=== PATIENT | female | born 1955 | race Caucasian/White ===

== ENCOUNTER 2022-07-10 15:30 | Inpatient (IN) ==
--- NOTE | 2022-07-10 16:25 | Emergency Department Note ---
Impression & Plan Generalized anxiety disorder with panic attacks ED Provider Note NAME: RICKI MOSHER AGE: 66 SEX: F : 1955 ARRIVES VIA: Walk-In INFORMANT: Patient, ED PROVIDER(S): Dany Saeed MD Chief Complaint: Anxiety HPI: Patient presents due to concern for significant anxiety that seem to present on . Patient states that it is been persistent. Patient was seen at [facility] and had a recent increase in her Zoloft from 100 mg to 150 mg completed 1 week ago. Patient states that he is compliant with medications. Patient denies any chest pains or shortness of breath. The patient does have some associated anxiety poor sleep. The patient does not any access to guns or weapons. There are guns but they are locked up and the patient does not have access to them. The patient denies any prior history of self-harm. The patient did have an admission a month and a half ago and states that she did feel as though she benefited from admission at that time. The patient has thought about taking too much of her medications. Patient denies any HI or AVH. Patient is retired. ROS: See HPI for pertinent positives and negatives. A total of 10 systems were reviewed and otherwise negative. Past medical history: See below Surgical history: See below Social history: See below Physical Exam: GENERAL: NAD, anxious, non-toxic. EYE EXAM: Normal conjunctiva. PERRL, no anisocoria and EOM's grossly intact w/o pain. NECK: Supple, no nuchal rigidity, no adenopathy, non-tender. No signs of meningismus. FROM of the neck with good chin to chest and neck extension. No stridor. LUNGS: Clear to auscultation. Normal chest wall mechanics. HEART: NSR, no MRG. ABDOMEN: Abdomen soft, non-tender, normo-active bowel sounds, no masses, no rebound or guarding. BACK: No CVA TTP. SKIN: No rashes and no bruising. UPPER EXTREMITIES: Upper extremities are grossly normal. LOWER EXTREMITIES: Grossly normal, no edema. NEURO EXAM: A&O x3, cranial nerves II-XII grossly intact, normal speech, moves all 4 extremities. Psych: Anxious in appearance, +SI w/ plan, denies HI or AVH Differential diagnoses: Mood disorder, infection, hypoglycemia, electrolyte abnormalities, cardiac sources, intracerebral event, toxicologic, trauma, neurologic, as well as other pathologies. Course: Patient was seen and evaluated the bedside. Full history physical exam was performed. MDM: Patient was seen due to concern for anxiety. Blood work was obtained and the patient was ordered p.o. Ativan. Patient was the medically cleared seen and evaluated by psych family independence case manager. Referrals made. Bed search was suspended. The patient's home Suboxone was ordered. Patient signed out to overnight physician Dr. Celis. Past Med/Surg History Medical History Fibromyalgia Osteoarthritis Surgical History History of total bilateral knee replacement Social History Smoking Status: Never smoker Preferred Language: Danish Communication Ability: Effective Nutrition Program Instructor Required: No Beliefs That Will Affect Care: None marital status: Current Living Situation: Spouse current occupational status: unemployed Feels Safe at Home: Yes Assistive Devices: Glasses Allergies Allergies Allergy/AdvReac Type Severity Reaction Status Date / Time No Known Allergies Allergy Unknown Verified 10/17/06 15:21 morphine AdvReac Unknown N&V;DROP Verified 09/10/09 03:46 IN BP Home Meds Home Medications Medication Instructions Recorded Confirmed amlodipine 10 mg tablet 10 mg PO QAM ##0 09/25/06 07/11/22 omeprazole 20 mg tablet,delayed 20 mg PO DAILY ##0 09/25/06 07/10/22 release enalapril maleate 5 mg tablet 5 mg PO QPM 06/05/22 07/11/22 buprenorphine 8 mg-naloxone 2 mg 1 film sublingual BID 06/06/22 07/10/22 sublingual film buprenorphine 8 mg-naloxone 2 mg 1 film sublingual BID PRN Pain 07/11/22 07/11/22 sublingual film melatonin 10 mg tablet 10 mg PO HS 07/11/22 07/11/22 propranolol 20 mg tablet 20 mg PO BID PRN Anxiety 07/11/22 07/11/22 sertraline 100 mg tablet 100 mg PO QAM 07/11/22 07/11/22 sertraline 50 mg tablet 50 mg PO QAM 07/11/22 07/11/22 Previous Rx's Medication Instructions Recorded hydroxyzine HCl 50 mg tablet 50 mg PO Q6HWA PRN anxiety #30 tabs 06/11/22 metformin 1,000 mg tablet 1,000 mg PO BIDWMEAL #1 tab 06/11/22 mirtazapine 15 mg tablet 15 mg PO HS #30 tabs 06/11/22 Results & Data (ED) Vital Signs Vital Signs - 24 hr 07/10/22 15:57 07/10/22 21:44 07/10/22 23:15 Temperature 36.6 C Temperature Source Temporal Artery Scan Pulse Rate 60 Pulse Rate [Finger] 63 59 L Pulse Rhythm [Finger] Regular Regular Pulse Strength [Finger] Normal Normal Respiratory Rate 20 17 18 Respiratory Effort / Characteristics Non-Labored Non-Labored Spontaneous Non-Labored Respiratory Depth Normal Normal Normal Respiratory Pattern Regular Regular Blood Pressure 167/80 H Blood Pressure [Right Arm] 157/80 H 162/78 H Blood Pressure Mean 109 Blood Pressure Mean [Right Arm] 105 106 Blood Pressure Position [Right Arm] Lying Lying Pulse Oximetry 97 93 92 Oxygen Delivery Method Room Air Room Air Room Air Sepsis Recent Fever Within 48 Hours No Sepsis New/Unexplained Change in Mental Status N/A Sepsis Action Taken by Nursing No Action Required 07/11/22 09:09 Temperature Temperature Source Pulse Rate Pulse Rate [Finger] 58 L Pulse Rhythm [Finger] Pulse Strength [Finger] Respiratory Rate 20 Respiratory Effort / Characteristics Non-Labored Respiratory Depth Normal Respiratory Pattern Regular Blood Pressure Blood Pressure [Right Arm] 173/86 H Blood Pressure Mean Blood Pressure Mean [Right Arm] 115 Blood Pressure Position [Right Arm] Sitting Pulse Oximetry 96 Oxygen Delivery Method Room Air Sepsis Recent Fever Within 48 Hours Sepsis New/Unexplained Change in Mental Status Sepsis Action Taken by Intermediate Medications Current Medication List: was personally reviewed by me Laboratory Data Attestation: I reviewed the patient's lab results. Result diagrams: 07/10/22 17:56 07/10/22 17:56 Lab Results 07/10/22 07/10/22 07/10/22 Range/Units 17:49 17:56 17:56 WBC 6.33 (4.8-10.8) K/ul RBC 4.67 (3.93-5.22) M/uL Hgb 12.9 (12.0-16.0) g/dl Hct 39.8 (34.1-44.9) % MCV 85.2 (80.0-100.0) fL MCH 27.6 (25.0-34.0) pg MCHC 32.4 (32.0-36.0) g/dL RDW Std Deviation 41.0 (36.4-46.3) fL RDW Coeff of Simona 13.2 (11.5-14.5) % Plt Count 195 (130-400) K/uL MPV 10.2 (9.4-12.3) fL Immature Gran % (Auto) 0.2 % Neut % (Auto) 56.8 % Lymph % (Auto) 33.6 % [place] % (Auto) 7.0 % Eos % (Auto) 1.9 % Baso % (Auto) 0.5 % Neut # (Auto) 3.60 (1.4-6.5) K/uL Lymph # (Auto) 2.13 (1.2-3.4) K/uL [place] # (Auto) 0.44 (0.24-0.82) K/uL Eos # (Auto) 0.12 (0-0.50) K/uL Baso # (Auto) 0.03 (0-0.2) K/uL Immature Gran # (Auto) 0.01 (0.00-0.02) K/uL Sodium 143 (136-145) mmol/L Potassium 3.6 (3.5-5.1) mmol/L Chloride 105 (98-107) mmol/L Carbon Dioxide 29 (21-32) mmol/L Anion Gap 9 (3-11) BUN 13 (6-23) mg/dl Creatinine 1.01 (0.6-1.2) mg/dl Est Cr Clr Drug Dosing 59.4 ml/min Est GFR ( Amer) 68.1 ml/min Est GFR (Non-Af Amer) 58.8 ml/min BUN/Creatinine Ratio 12.9 (10-20) Glucose 110 H (70-99(Fasting)) mg/dl Calcium 9.9 (8.5-10.1) mg/dl Total Bilirubin 0.8 (0.2-1.0) mg/dl AST 76 H (13-39) U/L ALT 92 H (7-52) U/L Alkaline Phosphatase 60 (34-104) U/L Total Protein 7.6 (6.0-8.3) gm/dl Albumin 4.8 (3.4-5.0) gm/dl Globulin 2.8 (2.5-4.0) gm/dl Albumin/Globulin Ratio 1.7 (0.9-2) TSH (0.300-4.500) uIu/ml Urine Color Urine Appearance (Clear) Urine pH (4.5-7.5) Ur Specific Mercer (1.000-1.030) Urine Protein (Negative) Urine Glucose (UA) (Negative) Urine Ketones (Negative) Urine Blood (Negative) Urine Nitrite (Negative) Urine Bilirubin (Negative) Urine Urobilinogen (Negative) Ur Leukocyte Esterase (Negative) Salicylates (3.0-30) mg/dl Urine Opiates Screen (Neg) Ur Methadone, Qual (Neg) Acetaminophen (10-30) ug/ml Urine Barbiturates (Neg) Ur Phencyclidine (PCP) (Neg) U Amphetamin/Meth Scrn (Neg) MDMA (Ecstasy) Screen (Neg) U Benzodiazepines Scrn (Neg) Ur Cocaine Metabolite (Neg) U Marijuana (THC) Screen (Neg) Ethyl Alcohol mg/dL (<10.0) mg/dl SARS-CoV-2, RNA, NAAT NEGATIVE (NEGATIVE) 07/10/22 07/10/22 07/10/22 Range/Units 17:56 17:56 17:56 WBC (4.8-10.8) K/ul RBC (3.93-5.22) M/uL Hgb (12.0-16.0) g/dl Hct (34.1-44.9) % MCV (80.0-100.0) fL MCH (25.0-34.0) pg MCHC (32.0-36.0) g/dL RDW Std Deviation (36.4-46.3) fL RDW Coeff of Simona (11.5-14.5) % Plt Count (130-400) K/uL MPV (9.4-12.3) fL Immature Gran % (Auto) % Neut % (Auto) % Lymph % (Auto) % [place] % (Auto) % Eos % (Auto) % Baso % (Auto) % Neut # (Auto) (1.4-6.5) K/uL Lymph # (Auto) (1.2-3.4) K/uL [place] # (Auto) (0.24-0.82) K/uL Eos # (Auto) (0-0.50) K/uL Baso # (Auto) (0-0.2) K/uL Immature Gran # (Auto) (0.00-0.02) K/uL Sodium (136-145) mmol/L Potassium (3.5-5.1) mmol/L Chloride (98-107) mmol/L Carbon Dioxide (21-32) mmol/L Anion Gap (3-11) BUN (6-23) mg/dl Creatinine (0.6-1.2) mg/dl Est Cr Clr Drug Dosing ml/min Est GFR ( Amer) ml/min Est GFR (Non-Af Amer) ml/min BUN/Creatinine Ratio (10-20) Glucose (70-99(Fasting)) mg/dl Calcium (8.5-10.1) mg/dl Total Bilirubin (0.2-1.0) mg/dl AST (13-39) U/L ALT (7-52) U/L Alkaline Phosphatase (34-104) U/L Total Protein (6.0-8.3) gm/dl Albumin (3.4-5.0) gm/dl Globulin (2.5-4.0) gm/dl Albumin/Globulin Ratio (0.9-2) TSH 0.974 (0.300-4.500) uIu/ml Urine Color Urine Appearance (Clear) Urine pH (4.5-7.5) Ur Specific [place] (1.000-1.030) Urine Protein (Negative) Urine Glucose (UA) (Negative) Urine Ketones (Negative) Urine Blood (Negative) Urine Nitrite (Negative) Urine Bilirubin (Negative) Urine Urobilinogen (Negative) Ur Leukocyte Esterase (Negative) Salicylates < 3.0 L (3.0-30) mg/dl Urine Opiates Screen (Neg) Ur Methadone, Qual (Neg) Acetaminophen < 3 L (10-30) ug/ml Urine Barbiturates (Neg) Ur Phencyclidine (PCP) (Neg) U Amphetamin/Meth Scrn (Neg) MDMA (Ecstasy) Screen (Neg) U Benzodiazepines Scrn (Neg) Ur Cocaine Metabolite (Neg) U Marijuana (THC) Screen (Neg) Ethyl Alcohol mg/dL < 10.0 (<10.0) mg/dl SARS-CoV-2, RNA, NAAT (NEGATIVE) 07/10/22 07/10/22 Range/Units 18:00 18:00 WBC (4.8-10.8) K/ul RBC (3.93-5.22) M/uL Hgb (12.0-16.0) g/dl Hct (34.1-44.9) % MCV (80.0-100.0) fL MCH (25.0-34.0) pg MCHC (32.0-36.0) g/dL RDW Std Deviation (36.4-46.3) fL RDW Coeff of Simona (11.5-14.5) % Plt Count (130-400) K/uL MPV (9.4-12.3) fL Immature Gran % (Auto) % Neut % (Auto) % Lymph % (Auto) % [place] % (Auto) % Eos % (Auto) % Baso % (Auto) % Neut # (Auto) (1.4-6.5) K/uL Lymph # (Auto) (1.2-3.4) K/uL [place] # (Auto) (0.24-0.82) K/uL Eos # (Auto) (0-0.50) K/uL Baso # (Auto) (0-0.2) K/uL Immature Gran # (Auto) (0.00-0.02) K/uL Sodium (136-145) mmol/L Potassium (3.5-5.1) mmol/L Chloride (98-107) mmol/L Carbon Dioxide (21-32) mmol/L Anion Gap (3-11) BUN (6-23) mg/dl Creatinine (0.6-1.2) mg/dl Est Cr Clr Drug Dosing ml/min Est GFR ( Amer) ml/min Est GFR (Non-Af Amer) ml/min BUN/Creatinine Ratio (10-20) Glucose (70-99(Fasting)) mg/dl Calcium (8.5-10.1) mg/dl Total Bilirubin (0.2-1.0) mg/dl AST (13-39) U/L ALT (7-52) U/L Alkaline Phosphatase (34-104) U/L Total Protein (6.0-8.3) gm/dl Albumin (3.4-5.0) gm/dl Globulin (2.5-4.0) gm/dl Albumin/Globulin Ratio (0.9-2) TSH (0.300-4.500) uIu/ml Urine Color Yellow Urine Appearance Clear (Clear) Urine pH 5.5 (4.5-7.5) Ur Specific [place] 1.013 (1.000-1.030) Urine Protein Negative (Negative) Urine Glucose (UA) Negative (Negative) Urine Ketones 1+ H (Negative) Urine Blood Negative (Negative) Urine Nitrite Negative (Negative) Urine Bilirubin Negative (Negative) Urine Urobilinogen Negative (Negative) Ur Leukocyte Esterase Negative (Negative) Salicylates (3.0-30) mg/dl Urine Opiates Screen Neg (Neg) Ur Methadone, Qual Neg (Neg) Acetaminophen (10-30) ug/ml Urine Barbiturates Neg (Neg) Ur Phencyclidine (PCP) Neg (Neg) U Amphetamin/Meth Scrn Neg (Neg) MDMA (Ecstasy) Screen Neg (Neg) U Benzodiazepines Scrn Neg (Neg) Ur Cocaine Metabolite Neg (Neg) U Marijuana (THC) Screen Neg (Neg) Ethyl Alcohol mg/dL (<10.0) mg/dl SARS-CoV-2, RNA, NAAT (NEGATIVE) Administered Medications Buprenorphine/Naloxone (Buprenorphine/Naloxone 8/2 Mg Tab) 1 tab SL BID [facility] [place] Stop: 08/09/22 22:44 Last Admin: 07/11/22 08:43 Dose: 1 tab Documented By: Admin: 07/10/22 22:43 Dose: 1 tab Documented By: DANI Propranolol HCl (Propranolol Hcl 20 Mg Tab) 20 mg PO QAM [facility] [place] Stop: 08/10/22 10:14 Last Admin: 07/11/22 10:32 Dose: Not Given Documented By: HG Discontinued Medications Amlodipine Besylate (Amlodipine Besylate 5 Mg Tab) 10 mg PO NOW ONE Stop: 07/11/22 09:08 Last Admin: 07/11/22 10:30 Dose: 10 mg Documented By: SAADIA Hydroxyzine HCl (Hydroxyzine Hcl 25 Mg Tab) 50 mg PO NOW STA Stop: 07/11/22 00:48 Last Admin: 07/11/22 01:29 Dose: 50 mg Documented By: ANA MARIA Hydroxyzine HCl (Hydroxyzine Hcl 25 Mg Tab) 50 mg PO NOW STA Stop: 07/11/22 09:48 Last Admin: 07/11/22 10:30 Dose: 50 mg Documented By: SAADIA Lorazepam (Lorazepam 0.5 Mg Tab) 0.5 mg PO NOW STA Stop: 07/10/22 16:57 Last Admin: 07/10/22 17:14 Dose: 0.5 mg Documented By: NAY Lorazepam (Lorazepam 0.5 Mg Tab) 0.5 mg PO NOW STA Stop: 07/10/22 20:16 Last Admin: 07/10/22 20:26 Dose: 0.5 mg Documented By: HANY Metformin HCl (Metformin Hcl 500 Mg Tab) 1,000 mg PO NOW STA Stop: 07/11/22 00:48 Last Admin: 07/11/22 01:29 Dose: Not Given Documented By: ANA MARIA Metformin HCl (Metformin Hcl 500 Mg Tab) 1,000 mg PO NOW STA Stop: 07/11/22 09:48 Last Admin: 07/11/22 10:30 Dose: 1,000 mg Documented By: SAADIA Mirtazapine (Mirtazapine Tab 15 Mg Tab) 15 mg PO NOW ONE Stop: 07/11/22 00:48 Last Admin: 07/11/22 01:29 Dose: 15 mg Documented By: ANA MARIA Pantoprazole Sodium (Pantoprazole 40 Mg Tab) 40 mg PO NOW STA Stop: 07/11/22 09:48 Last Admin: 07/11/22 10:31 Dose: 40 mg Documented By: SAADIA Propranolol HCl (Propranolol Hcl 20 Mg Tab) 20 mg PO NOW STA Stop: 07/11/22 00:48 Last Admin: 07/11/22 01:29 Dose: 20 mg Documented By: ANA MARIA Sertraline HCl (Sertraline Hcl 50 Mg Tablet) 150 mg PO NOW ONE Stop: 07/11/22 09:49 Last Admin: 07/11/22 10:31 Dose: 150 mg Documented By: SAADIA Discharge Plan Visit Data Chief Complaint: Anxiety Stated Complaint: ANXIETY AND DEPRESSION ED Provider: Jemal Enciso Discharge Problem: Generalized anxiety disorder with panic attacks Patient Disposition: Admitted As Inpatient Discharge Instructions Interventions: ED Discharge Assessment Last Done: 07/11/22 12:24
[2022-07-10] MEDS ORDERED: LORazepam 0.5 MG TAB PO STA ×2 (16:56→20:15)
[2022-07-10 18:06] LABS: Basophils # (auto) 0.03 K/uL (0-0.2); Basophils % (auto) 0.5 %; Eosinophils # (auto) 0.12 K/uL (0-0.50); Eosinophils % (auto) 1.9 %; Hematocrit (blood only) 39.8 % (34.1-44.9); Hemoglobin 12.9 g/dl (12.0-16.0); Immature Granulocytes # (auto) 0.01 K/uL (0.00-0.02); Immature Granulocytes % (auto) 0.2 %; Lymphocytes # (auto) 2.13 K/uL (1.2-3.4); Lymphocytes % (auto) 33.6 %; Mean Corpuscular Hemoglobin 27.6 pg (25.0-34.0); Mean Corpuscular Hgb Conc 32.4 g/dL (32.0-36.0); Mean Corpuscular Volume 85.2 fL (80.0-100.0); Mean Platelet Volume 10.2 fL (9.4-12.3); Monocytes # (auto) 0.44 K/uL (0.24-0.82); Neutrophils % (auto) 56.8 %; Platelet Count 195 K/uL (130-400); RDW Coefficient of Variation 13.2 % (11.5-14.5); Red Blood Count 4.67 M/uL (3.93-5.22); White Blood Count 6.33 K/ul (4.8-10.8)
[2022-07-10 18:29] LABS: Appearance Urine Clear (Clear); Bilirubin Urine Negative (Negative); Blood Urine Negative (Negative); Color Urine Yellow; Glucose Urine UA Negative (Negative); Ketones Urine 1+ (Negative); Leukocyte Esterase Urine Negative (Negative); Nitrite Urine Negative (Negative); Protein Urine Negative (Negative); Specific Gravity Urine 1.013 (1.000-1.030); Urobilinogen Urine Negative (Negative); pH Urine 5.5 (4.5-7.5)
[2022-07-10 18:58] LABS: Acetaminophen < 3 ug/ml (10-30); Albumin Globulin Ratio 1.7 (0.9-2); Albumin Level 4.8 gm/dl (3.4-5.0); BUN Creatinine Ratio 12.9 (10-20); Bilirubin,Total 0.8 mg/dl (0.2-1.0); Calcium 9.9 mg/dl (8.5-10.1); Creatinine Clr Calc Pharmacy 59.4 ml/min; Est GFR (African American) 68.1 ml/min; Est GFR (Non-African American) 58.8 ml/min; Globulin 2.8 gm/dl (2.5-4.0); Potassium 3.6 mmol/L (3.5-5.1); Salicylate < 3.0 mg/dl (3.0-30); Total Protein 7.6 gm/dl (6.0-8.3)
[2022-07-10 20:03] LABS: Amphetamines+Metham, Urine Neg (Neg); Barbiturates, Urine Neg (Neg); Benzodiazepine, Urine Neg (Neg); Cocaine, Urine Neg (Neg); MDMA (Ecstacy), Urine Neg (Neg); Methadone, Urine Neg (Neg); Opiate, Urine Neg (Neg); Phencyclidine, Urine Neg (Neg)
[2022-07-10] MEDS: BUPRENORPHINE/NALOXONE 8/2 MG TAB SL SCH (22:43)
[2022-07-11] MEDS ORDERED: MIRTAZAPINE TAB 15 MG TAB PO ONE (00:47)
[2022-07-11] MEDS ORDERED: hydrOXYzine HCl 25 MG TAB PO STA ×2 (00:47→09:47)
[2022-07-11] MEDS ORDERED: metFORMIN HCL 500 MG TAB PO STA ×2 (00:47→09:47)
[2022-07-11] MEDS ORDERED: PROPRANOLOL HCL 20 MG TAB PO STA (00:47)
[2022-07-11] MEDS: BUPRENORPHINE/NALOXONE 8/2 MG TAB SL SCH ×2 (08:43→21:04)
[2022-07-11] MEDS ORDERED: amLODIPine BESYLATE 5 MG TAB PO ONE (09:07)
--- NOTE | 2022-07-11 09:07 | Emergency Department Note ---
ED Visit Note Patient signed out to me at change of shift. Patient medically cleared at time of signout. Patient here with anxiety and suicidal ideation. Patient agreeable with plan for inpatient mental health treatment at this time. Case signed out to Dr. Enciso pending final disposition as patient has not been formally accepted at a facility. .
[2022-07-11] MEDS ORDERED: PANTOprazole 40 MG TAB PO STA (09:47)
[2022-07-11] MEDS ORDERED: SERTRALINE HCL 50 MG TABLET PO ONE (09:48)
--- NOTE | 2022-07-11 10:01 | Emergency Department Note ---
ED Visit Note Patient is a 66-year-old female who presents the ER for suicidal ideations with a plan. She was medically cleared by Dr. Saeed and signed out to me by Dr. Celis. Currently awaiting placement as she is been medically cleared. Referrals been placed to [facility] patient was seen and evaluated in septums at [facility] on a 201. Patient rested comfortably in the ER while awaiting placement on [facility]. .
[2022-07-11] MEDS ORDERED: PROPRANOLOL HCL 20 MG TAB PO SCH (10:15)
[2022-07-11] MEDS ORDERED: SODIUM CHLORIDE 0.65% NA SOLN 45 ML (OCEAN) PRN (12:16)
[2022-07-11] MEDS ORDERED: BISMUTH SUBSALICYLATE LIQD 236 ML PO PRN (12:16)
[2022-07-11] MEDS ORDERED: ALUMINUM/MAGNESIUM SUSP 30 ML UDC PO PRN (12:16)
[2022-07-11] MEDS ORDERED: MAGNESIUM HYDROXIDE SUSP 30 ML UDC PO PRN (12:16)
[2022-07-11] MEDS ORDERED: BUPRENORPHINE/NALOXONE 8/2 MG TAB SL PRN (13:17)
[2022-07-11] MEDS: metFORMIN HCL 500 MG TAB PO SCH ×2 (13:52→17:30)
--- NOTE | 2022-07-11 16:23 | History & Physical ---
Date of Service July 11, 2022 Impression / Recommendations Impression 66 yo female with hx of refractory ruminative depression since COVID. Partial response to current meds, worsened in the setting of family illness and health fears. MNPR due to age, fear of infection, very tearful. 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 The patient will participate in group, recreational, and milieu therapies and will be offered additional individual and family sessions as clinically appropriate. Risks/benefits/alternatives reviewed re: current medications. Patient agrees to a trial of increase dose of Remeron. Inventory Assets Strengths: help seeking, animal lover Needs: improve coping, medical adjustment Suicide Risk Level Suicide Risk Level: Moderate (q15 min suicide checks) Risk Factors Assessment : Yes Do You Have Access To A Gun?: No ( owns gun but is secured ) Health Problems: Yes Mental Health Diagnoses: Yes Substance Use Disorders: No Previous Attempt: No Previous Psychiatric Hospitalization: Yes Protective Factors Assessment : Yes Employed: No Stable Relationships: Yes Supportive Family: Yes Psychiatric History Identifying Data GALLO MOSHER is a 66-year-old F who currently lives in [place], has a recent admission to on 06/05/22-06/11/22, and was admitted on 07/11/22 12:16 on a 201 voluntary commitment for depression with anxiety and poor functioning. Chief Complaint "I just need to get straightened out, I can't keep waking up like this". History of Present Illness Per last admission: Gallo presents for psychiatric admission for severe anxiety and depression since having COVID in May and now with non-stop panic attacks and passive SI which is preventing her from attending to her ADLs and has resulted in almost 25lbs of weight loss within the last month due to no appetite. She's not sleeping well, has low appetite, feels very hopeless and feels unable to do anything she used to enjoy or needs to do. She notes that a few days after getting COVID she felt like she was suffocating and "like there is this pressure in my head" and hasn't been able to find relief since then. She notes "the only time I get relief is when I'm sleeping" due to sleep onset insomnia. She notes "everything sets me off, noises, smells, I just want left alone". Today the patient reports feeling very similarly for the past 4-5 days. This coincides with multiple family members having RSV, quarateened self to basement and she became concerned about getting sick and having a relapse. Her symptoms were already "coming back" as she agreed to an increase in her Zoloft last week. She feels particularly overwhelmed in the am. She sometimes feels "a little hyper" but there is no evidence of activation. She doesn't feel like she has been able to care for her animals as well. Past Psychiatric History Current Psychiatric Diagnosis: Anxiety Outpatient Services: [facility] for medication management, Emilia Saldaña LCSW for therapy Previous Psych Admissions: [facility] 5 weeks ago Do You Have Access To A Gun?: No ( owns gun but is secured ) Past Medication Trials: Vistaril, melatonin, hx of Cymbalta for pain indication Allergies Allergy/AdvReac Type Severity Reaction Status Date / Time No Known Allergies Allergy Unknown Verified 10/17/06 15:21 morphine AdvReac Unknown N&V;DROP Verified 09/10/09 03:46 IN BP Home Medications Medication Instructions Recorded Confirmed Type amlodipine 10 mg tablet 10 mg PO QAM ##0 09/25/06 07/11/22 History omeprazole 20 mg tablet,delayed 20 mg PO DAILY ##0 09/25/06 07/10/22 History release enalapril maleate 5 mg tablet 5 mg PO QPM 06/05/22 07/11/22 History buprenorphine 8 mg-naloxone 2 mg 1 film sublingual BID 06/06/22 07/10/22 History sublingual film hydroxyzine HCl 50 mg tablet 50 mg PO Q6HWA PRN anxiety #30 tabs 06/11/22 07/11/22 Rx metformin 1,000 mg tablet 1,000 mg PO BIDWMEAL #1 tab 06/11/22 07/10/22 Rx mirtazapine 15 mg tablet 15 mg PO HS #30 tabs 06/11/22 07/10/22 Rx buprenorphine 8 mg-naloxone 2 mg 1 film sublingual BID PRN Pain 07/11/22 07/11/22 History sublingual film melatonin 10 mg tablet 10 mg PO HS 07/11/22 07/11/22 History propranolol 20 mg tablet 20 mg PO BID PRN Anxiety 07/11/22 07/11/22 History sertraline 100 mg tablet 100 mg PO QAM 07/11/22 07/11/22 History sertraline 50 mg tablet 50 mg PO QAM 07/11/22 07/11/22 History Family History Family Mental Health History Comment: oldest granddaughter has "issues"- depression, anxiety. unknown if she is on medication Alcohol History Hx of Alcohol Use Over the Past 12 Months: No AUDIT Total Score: 1 Smoking Use Have You Smoked or Used Tobacco Products in the Last 30 Days: No Smoking Status: Never smoker Substance History Hx of Prescription Med Misuse Over the Past 12 Months: No Hx of Over the Counter Med Misuse Over the Past 12 Months: No Hx of Inhalent Misuse Over the Past 12 Months: No Hx of Organic Substance Use Over the Past 12 Months: No Hx of Illegal Substances/Street Drug Use Over Past 12 Months: No Problems as a Result of Past Substance Use: None Identified Personal History Living Arrangements: Home Highest Grade Completed: High School Graduate Employment Status: Self-Employed (farm work) Marital Status: Number Of Children: 2 Beliefs That Will Affect Care: None Current Legal Problems: No Hx Legal Problems: No Hx Traumatic Life Events: No Patient History Medical History Fibromyalgia Osteoarthritis Surgical History History of total bilateral knee replacement Social History Smoking Status: Never smoker Preferred Language: Frisian Communication Ability: Effective Quarry [employer] Stone Required: No Beliefs That Will Affect Care: None marital status: Current Living Situation: Spouse current occupational status: unemployed Feels Safe at Home: Yes Assistive Devices: Glasses Review of Systems Review of Systems: All systems reviewed & are unremarkable except as noted in HPI & below Physical Exam Psychiatric: Orientation: alert and oriented x 3 Apperance: appropriately dressed and appropriately groomed Eye Contact: good eye contact Motor Behavior: no abnormal motor movements Speech: normal rate/rhythm/volume of speech Affect: + depressed affect Mood: + depressed mood Thought P rocess: + perseveration Thought Content: reality based without delusions Suicidal Thoughts: denies suicidal plan and denies suicidal intent; + reports suicidal thoughts Homicidal Thoughts: denies homicidal thoughts Hallucinations: no auditory hallucinations and no visual hallucinations Cognition: attention grossly intact and language grossly intact Estimated Intelligence: consistent with education level Insight: + limited insight Judgement: + limited judgement Vital Signs (Past 24 Hours): Last Vital Signs Temp 36.7 C 07/11/22 12:40 Pulse 73 07/11/22 12:40 Resp 16 07/11/22 12:40 BP 158/78 H 07/11/22 12:40 Pulse Ox 96 07/11/22 09:09 O2 Del Method 07/11/22 12:24 Exam Statement: A physical exam was performed in the ED by Dr. Saeed for the purposes of medical clearance. I accept that physical as correct and adequate for the purposes of the inpatient physical exam. Results & Data ([facility]) Laboratory Results Laboratory Results - last 24 hr 07/10/22 07/10/22 07/10/22 17:49 17:56 17:56 WBC 6.33 RBC 4.67 Hgb 12.9 Hct 39.8 MCV 85.2 MCH 27.6 MCHC 32.4 RDW Std Deviation 41.0 RDW Coeff of [place] 13.2 Plt Count 195 MPV 10.2 Immature Gran % (Auto) 0.2 Neut % (Auto) 56.8 Lymph % (Auto) 33.6 [place] % (Auto) 7.0 Eos % (Auto) 1.9 Baso % (Auto) 0.5 Neut # (Auto) 3.60 Lymph # (Auto) 2.13 [place] # (Auto) 0.44 Eos # (Auto) 0.12 Baso # (Auto) 0.03 Immature Gran # (Auto) 0.01 Sodium 143 Potassium 3.6 Chloride 105 Carbon Dioxide 29 Anion Gap 9 BUN 13 Creatinine 1.01 Est Cr Clr Drug Dosing 59.4 Est GFR ( Amer) 68.1 Est GFR (Non-Af Amer) 58.8 BUN/Creatinine Ratio 12.9 Glucose 110 H Calcium 9.9 Total Bilirubin 0.8 AST 76 H ALT 92 H Alkaline Phosphatase 60 Total Protein 7.6 Albumin 4.8 Globulin 2.8 Albumin/Globulin Ratio 1.7 TSH Urine Color Urine Appearance Urine pH Ur Specific [place] Urine Protein Urine Glucose (UA) Urine Ketones Urine Blood Urine Nitrite Urine Bilirubin Urine Urobilinogen Ur Leukocyte Esterase Salicylates Urine Opiates Screen Ur Methadone, Qual Acetaminophen Urine Barbiturates Ur Phencyclidine (PCP) U Amphetamin/Meth Scrn MDMA (Ecstasy) Screen U Benzodiazepines Scrn Ur Cocaine Metabolite U Marijuana (THC) Screen Ethyl Alcohol mg/dL SARS-CoV-2, RNA, NAAT NEGATIVE 07/10/22 07/10/22 07/10/22 17:56 17:56 17:56 WBC RBC Hgb Hct MCV MCH MCHC RDW Std Deviation RDW Coeff of [place] Plt Count MPV Immature Gran % (Auto) Neut % (Auto) Lymph % (Auto) [place] % (Auto) Eos % (Auto) Baso % (Auto) Neut # (Auto) Lymph # (Auto) [place] # (Auto) Eos # (Auto) Baso # (Auto) Immature Gran # (Auto) Sodium Potassium Chloride Carbon Dioxide Anion Gap BUN Creatinine Est Cr Clr Drug Dosing Est GFR ( Amer) Est GFR (Non-Af Amer) BUN/Creatinine Ratio Glucose Calcium Total Bilirubin AST ALT Alkaline Phosphatase Total Protein Albumin Globulin Albumin/Globulin Ratio TSH 0.974 Urine Color Urine Appearance Urine pH Ur Specific [place] Urine Protein Urine Glucose (UA) Urine Ketones Urine Blood Urine Nitrite Urine Bilirubin Urine Urobilinogen Ur Leukocyte Esterase Salicylates < 3.0 L Urine Opiates Screen Ur Methadone, Qual Acetaminophen < 3 L Urine Barbiturates Ur Phencyclidine (PCP) U Amphetamin/Meth Scrn MDMA (Ecstasy) Screen U Benzodiazepines Scrn Ur Cocaine Metabolite U Marijuana (THC) Screen Ethyl Alcohol mg/dL < 10.0 SARS-CoV-2, RNA, NAAT 07/10/22 07/10/22 18:00 18:00 WBC RBC Hgb Hct MCV MCH MCHC RDW Std Deviation RDW Coeff of [place] Plt Count MPV Immature Gran % (Auto) Neut % (Auto) Lymph % (Auto) [place] % (Auto) Eos % (Auto) Baso % (Auto) Neut # (Auto) Lymph # (Auto) [place] # (Auto) Eos # (Auto) Baso # (Auto) Immature Gran # (Auto) Sodium Potassium Chloride Carbon Dioxide Anion Gap BUN Creatinine Est Cr Clr Drug Dosing Est GFR ( Amer) Est GFR (Non-Af Amer) BUN/Creatinine Ratio Glucose Calcium Total Bilirubin AST ALT Alkaline Phosphatase Total Protein Albumin Globulin Albumin/Globulin Ratio TSH Urine Color Yellow Urine Appearance Clear Urine pH 5.5 Ur Specific [place] 1.013 Urine Protein Negative Urine Glucose (UA) Negative Urine Ketones 1+ H Urine Blood Negative Urine Nitrite Negative Urine Bilirubin Negative Urine Urobilinogen Negative Ur Leukocyte Esterase Negative Salicylates Urine Opiates Screen Neg Ur Methadone, Qual Neg Acetaminophen Urine Barbiturates Neg Ur Phencyclidine (PCP) Neg U Amphetamin/Meth Scrn Neg MDMA (Ecstasy) Screen Neg U Benzodiazepines Scrn Neg Ur Cocaine Metabolite Neg U Marijuana (THC) Screen Neg Ethyl Alcohol mg/dL SARS-CoV-2, RNA, NAAT Current Inpatient Medications Current Inpatient Medications: Current Inpatient Medications Acetaminophen (Acetaminophen 325 Mg Tab) 650 mg PO Q4H PRN PRN Reason: Headache or Minor Fever Stop: 08/10/22 12:15 Al Hydrox/Mg Hydrox/Simethicone (Aluminum/Magnesium Susp 30 Ml Udc) 30 ml PO Q4H PRN PRN Reason: GI Upset Stop: 08/10/22 12:15 Amlodipine Besylate (Amlodipine Besylate 5 Mg Tab) 10 mg PO [place] Stop: 08/11/22 08:59 Bismuth Subsalicylate (Bismuth Subsalicylate Liqd 236 Ml) 15 ml PO PRN PRN PRN Reason: Loose Stool Stop: 08/10/22 12:15 Buprenorphine/Naloxone (Buprenorphine/Naloxone 8/2 Mg Tab) 1 tab SL BID [facility] Stop: 08/09/22 22:44 Last Admin: 07/11/22 08:43 Dose: 1 tab Enalapril Maleate (Enalapril Maleate 5 Mg Tab) 5 mg PO QAM [facility] Stop: 08/11/22 08:59 Hydroxyzine HCl (Hydroxyzine Hcl 25 Mg Tab) 50 mg PO HSZ PRN PRN Reason: Insomnia Stop: 08/10/22 12:15 Hydroxyzine HCl (Hydroxyzine Hcl 25 Mg Tab) 25 mg PO Q4H PRN PRN Reason: Anxiety Stop: 08/10/22 12:15 Magnesium Hydroxide (Magnesium Hydroxide Susp 30 Ml Udc) 30 ml PO DAILY PRN PRN Reason: Constipation Stop: 08/10/22 12:15 Melatonin (Melatonin 3 Mg Tab) 9 mg PO HS [facility] Stop: 08/10/22 21:59 Metformin HCl (Metformin Hcl 500 Mg Tab) 1,000 mg PO BIDM [facility] Stop: 08/10/22 13:29 Last Admin: 07/11/22 13:52 Dose: Not Given Mirtazapine (Mirtazapine Tab 15 Mg Tab) 30 mg PO [facility] Stop: 08/10/22 21:59 Pantoprazole Sodium (Pantoprazole 40 Mg Tab) [address] [facility] Stop: 08/11/22 08:59 Propranolol HCl (Propranolol Hcl 20 Mg Tab) 20 mg PO BID PRN PRN Reason: Anxiety Stop: 08/10/22 13:17 Sertraline HCl (Sertraline Hcl 50 Mg Tablet) [address] [facility] Stop: 08/11/22 08:59 Sodium Chloride (Sodium Chloride 0.65% Na Soln 45 Ml ([place])) 1 - 2 sprays NA PRN PRN PRN Reason: Nasal Dryness/Congestion Stop: 08/10/22 12:15
[2022-07-11] MEDS: hydrOXYzine HCl 25 MG TAB PO PRN (17:30)
[2022-07-11] MEDS: PROPRANOLOL HCL 20 MG TAB PO PRN (19:17)
[2022-07-11] MEDS ORDERED: BUPRENORPHINE/NALOXONE 8/2 MG TAB SL SCH (21:00)
[2022-07-11] MEDS: MELATONIN 3 MG TAB PO SCH (21:03)
[2022-07-11] MEDS: MIRTAZAPINE TAB 15 MG TAB PO SCH (21:04)
[2022-07-11] MEDS ORDERED: MIRTAZAPINE TAB 15 MG TAB PO SCH (22:00)
[2022-07-12] MEDS ORDERED: SERTRALINE HCL 50 MG TABLET PO SCH (09:00)
[2022-07-12] MEDS: ENALAPRIL MALEATE 5 MG TAB PO SCH (09:32)
[2022-07-12] MEDS: amLODIPine BESYLATE 5 MG TAB PO SCH (09:32)
[2022-07-12] MEDS: metFORMIN HCL 500 MG TAB PO SCH ×2 (09:33→17:41)
[2022-07-12] MEDS: PANTOprazole 40 MG TAB PO SCH (09:33)
[2022-07-12] MEDS: BUPRENORPHINE/NALOXONE 8/2 MG TAB SL SCH ×2 (09:35→21:50)
[2022-07-12] MEDS ORDERED: LORazepam 0.5 MG TAB PO STA (09:55)
--- NOTE | 2022-07-12 13:02 | Psychiatric Progress Note ---
Date of Service July 12, 2022 Impression / Recommendations Impression 66 yo female with hx of refractory ruminative depression since COVID. Partial response to current meds, worsened in the setting of family illness and health fears. MNPR due to age, fear of infection, very tearful. 07/12/22: severe anxiety/ruminative component to depression with possible side effects of Zoloft. 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 Remeron increased last pm. Patient did receive low dose Ativan (in consultation with pain med) last stay with some benefits and understands fall risk. Agreed to 0.5 mg now and 0.25 mg po BID for now. Consider Abilify augmentation. 07/11/22: The patient was [facility]) on q15 min checks (behavioral with suicide precautions) for safety. The patient will participate in group, recreational, and milieu therapies and will be offered additional individual and family sessions as clinically appropriate. Risks/benefits/alternatives reviewed re: current medications. Patient agrees to a trial of increase dose of Remeron. Inventory Assets Strengths: help seeking, animal lover Needs: improve coping, medical adjustment Suicide Risk Level Suicide Risk Level: Moderate (q15 min suicide checks) Risk Factors Assessment : Yes Do You Have Access To A Gun?: No ( owns gun but is secured ) Health Problems: Yes Mental Health Diagnoses: Yes Substance Use Disorders: No Previous Attempt: No Previous Psychiatric Hospitalization: Yes Protective Factors Assessment : Yes Employed: No Stable Relationships: Yes Supportive Family: Yes Interval History Identifying Information RICKI MOSHER is a 66-year-old F who currently lives in [place], has a recent admission to on 06/05/22-06/11/22, and was admitted on 07/11/22 12:16 on a 201 voluntary commitment for depression with anxiety and poor functioning. Chief Complaint "I can't go on like this, this isn't me". Review of Systems Sleep Information Total Hours of Sleep: 5.5 Meal Information Percent Meal Consumed - Dinner: 50 Subjective Subjective Patient was seen & assessed and interval progress reviewed with treatment team. Some difficulty sleeping, regular reliance on prns (Vistaril, propranolol) with little benefit. Still reports some sense of restlessness/jitteriness that seems worse since increase in Zoloft. somatic complaints related to anxiety. overwhelmed, hopeless. Physical Exam Psychiatric Orientation: alert and oriented x 3 Apperance: appropriately dressed and appropriately groomed Eye Contact: good eye contact Motor Behavior: no abnormal motor movements Speech: normal rate/rhythm/volume of speech Affect: + depressed affect Mood: + depressed mood Thought Process: + perseveration Thought Content: reality based without delusions Suicidal Thoughts: denies suicidal plan and denies suicidal intent; + reports suicidal thoughts Homicidal Thoughts: denies homicidal thoughts Hallucinations: no auditory hallucinations and no visual hallucinations Cognition: attention grossly intact and language grossly intact Estimated Intelligence: consistent with education level Insight: + limited insight Judgement: + limited judgement Vital Signs (Past 24 Hours) Last Vital Signs Temp 36.7 C 07/12/22 06:38 Pulse 66 07/12/22 09:38 Resp 16 07/12/22 06:38 BP 176/79 H 07/12/22 09:38 Pulse Ox 96 07/11/22 09:09 O2 Del Method 07/11/22 12:24 Results & Data ([facility]) Current Inpatient Medications Current Inpatient Medications: Current Inpatient Medications Acetaminophen (Acetaminophen 325 Mg Tab) 650 mg PO Q4H PRN PRN Reason: Headache or Minor Fever Stop: 08/10/22 12:15 Al Hydrox/Mg Hydrox/Simethicone (Aluminum/Magnesium Susp 30 Ml Udc) 30 ml PO Q4H PRN PRN Reason: GI Upset Stop: 08/10/22 12:15 Amlodipine Besylate (Amlodipine Besylate 5 Mg Tab) 10 mg PO QAM [facility] Stop: 08/11/22 08:59 Last Admin: 07/12/22 09:32 Dose: 10 mg Bismuth Subsalicylate (Bismuth Subsalicylate Liqd 236 Ml) 15 ml PO PRN PRN PRN Reason: Loose Stool Stop: 08/10/22 12:15 Buprenorphine/Naloxone (Buprenorphine/Naloxone 8/2 Mg Tab) 1 tab SL BID [facility] Stop: 08/09/22 22:44 Last Admin: 07/12/22 09:35 Dose: 1 tab Enalapril Maleate (Enalapril Maleate 5 Mg Tab) 5 mg PO QAM [facility] Stop: 08/11/22 08:59 Last Admin: 12/07/22 09:32 Dose: 5 mg Hydroxyzine HCl (Hydroxyzine Hcl 25 Mg Tab) 50 mg PO HSZ PRN PRN Reason: Insomnia Stop: 08/10/22 12:15 Hydroxyzine HCl (Hydroxyzine Hcl 25 Mg Tab) 25 mg PO Q4H PRN PRN Reason: Anxiety Stop: 08/10/22 12:15 Last Admin: 07/11/22 17:30 Dose: 25 mg Lorazepam (Lorazepam 0.5 Mg Tab) 0.25 mg PO BIDM [facility] Stop: 08/11/22 17:44 Magnesium Hydroxide (Magnesium Hydroxide Susp 30 Ml Udc) 30 ml PO DAILY PRN PRN Reason: Constipation Stop: 08/10/22 12:15 Melatonin (Melatonin 3 Mg Tab) 9 mg PO [facility] Stop: 08/10/22 21:59 Last Admin: 07/11/22 21:03 Dose: 9 mg Metformin HCl (Metformin Hcl 500 Mg Tab) 1,000 mg PO BIDM [facility] Stop: 08/10/22 13:29 Last Admin: 07/12/22 09:33 Dose: 1,000 mg Mirtazapine (Mirtazapine Tab 15 Mg Tab) 30 mg PO [facility] Stop: 08/10/22 21:59 Last Admin: 07/11/22 21:04 Dose: 30 mg Pantoprazole Sodium (Pantoprazole 40 Mg Tab) [facility] Stop: 08/11/22 08:59 Last Admin: 07/12/22 09:33 Dose: 40 mg Propranolol HCl (Propranolol Hcl 20 Mg Tab) 20 mg PO BID PRN PRN Reason: Anxiety Stop: 08/10/22 13:17 Last Admin: 07/11/22 19:17 Dose: 20 mg Sertraline HCl (Sertraline Hcl 50 Mg Tablet) 75 mg [facility] Stop: 08/12/22 08:59 Sodium Chloride (Sodium Chloride 0.65% Na Soln 45 Ml ([place])) 1 - 2 sprays NA PRN PRN PRN Reason: Nasal Dryness/Congestion Stop: 08/10/22 12:15 Mental Health & Subst Abuse Tx Psychiatrist Name of Psychiatrist: [facility]'s Date of Appointment with Psychiatrist: 07/25/22 Time of Appointment with Psychiatrist: 11:20am Psychiatric Appointment Comment: [address] [employer] Therapist Name of Therapist: [facility]Emilia Saldaña Therapist's Therapy Appointment Comment: [phone] [place] Post Discharge Appointments Primary Care Phys[facility] Comment: [phone] [place] Contact Information Discharge Discharge Address: [address] [place] [address] YANCY Campos [id number]
[2022-07-12] MEDS: PROPRANOLOL HCL 20 MG TAB PO PRN (14:39)
[2022-07-12] MEDS: LORazepam 0.5 MG TAB PO SCH (17:42)
[2022-07-12] MEDS: hydrOXYzine HCl 25 MG TAB PO PRN (20:45)
[2022-07-12] MEDS: MELATONIN 3 MG TAB PO SCH (21:48)
[2022-07-12] MEDS: MIRTAZAPINE TAB 15 MG TAB PO SCH (21:49)
[2022-07-13] MEDS ORDERED: SERTRALINE HCL 50 MG TABLET PO SCH (09:00)
[2022-07-13] MEDS: amLODIPine BESYLATE 5 MG TAB PO SCH (09:40)
[2022-07-13] MEDS: ENALAPRIL MALEATE 5 MG TAB PO SCH (09:41)
[2022-07-13] MEDS: metFORMIN HCL 500 MG TAB PO SCH ×2 (09:41→17:19)
[2022-07-13] MEDS: PANTOprazole 40 MG TAB PO SCH (09:42)
[2022-07-13] MEDS: LORazepam 0.5 MG TAB PO SCH ×2 (09:44→17:19)
[2022-07-13] MEDS: BUPRENORPHINE/NALOXONE 8/2 MG TAB SL SCH ×2 (09:45→22:34)
--- NOTE | 2022-07-13 12:59 | Psychiatric Progress Note ---
Date of Service July 13, 2022 Impression / Recommendations Impression 66 yo female with hx of refractory ruminative depression since COVID. Partial response to current meds, worsened in the setting of family illness and health fears. MNPR due to age, fear of infection, very tearful. 07/13/22: severe anxiety/ruminative component, offered cognitive reframing and discussed holiday memories (1) Recurrent severe major depressive disorder with anxiety: Plan 07/13/22: Zoloft 25 mg tomorrow last dose. Risks/benefits/alternatives were reviewed re: antipsychotics for mood and/or psychosis. Discussion included but was not limited to metabolic side effects, risks of TD and suicidal thoughts. There were no abnormal motor movements at baseline. Fasting glucose and lipid panel ordered for baseline monitoring. She agreed to a trial of Abilify 2.5 mg daily for treatment refractory depression (adjunctive to mirtazapine). 07/12/22: taper Zoloft to 75 mg with plan to d/c. Remeron increased last pm. Patient did receive low dose Ativan (in consultation with pain med) last stay with some benefits and understands fall risk. Agreed to 0.5 mg now and 0.25 mg po BID for now. Consider Abilify augmentation. 07/11/22: [facility] on q15 min checks (behavioral with suicide precautions) for safety. The patient will participate in group, recreational, and milieu therapies and will be offered additional individual and family sessions as clinically appropriate. Risks/benefits/alternatives reviewed re: current medications. Patient agrees to a trial of increase dose of Remeron. Inventory Assets Strengths: help seeking, animal lover Needs: improve coping, medical adjustment Suicide Risk Level Suicide Risk Level: Moderate (q15 min suicide checks) Risk Factors Assessment : Yes Do You Have Access To A Gun?: No ( owns gun but is secured ) Health Problems: Yes Mental Health Diagnoses: Yes Substance Use Disorders: No Previous Attempt: No Previous Psychiatric Hospitalization: Yes Protective Factors Assessment : Yes Employed: No Stable Relationships: Yes Supportive Family: Yes Interval History Identifying Information RICKI MOSHER is a 66-year-old F who currently lives in [place], has a recent admission to on 06/05/22-06/11/22, and was admitted on 07/11/22 12:16 on a 201 voluntary commitment for depression with anxiety and poor functioning. Chief Complaint "I'm ruining [place]". Review of Systems Sleep Information Total Hours of Sleep: 6 Meal Information Percent Meal Consumed - Breakfast: 80 Percent Meal Consumed - Lunch: 100 Percent Meal Consumed - Dinner: 100 Subjective Subjective Patient was seen & assessed and interval progress reviewed with nursing and social work. remains anxious and ruminative with hopelessness/all or nothing thinking. denies any sedation or unsteady gait, finds Ativan helpful but that it wears off quickly. Physical Exam Psychiatric Orientation: alert and oriented x 3 Apperance: appropriately dressed and appropriately groomed Eye Contact: good eye contact Motor Behavior: no abnormal motor movements Speech: normal rate/rhythm/volume of speech Affect: + depressed affect Mood: + depressed mood Thought Process: + perseveration Thought Content: reality based without delusions Suicidal Thoughts: denies suicidal plan and denies suicidal intent; + reports suicidal thoughts Homicidal Thoughts: denies homicidal thoughts Hallucinations: no auditory hallucinations and no visual hallucinations Cognition: attention grossly intact and language grossly intact Estimated Intelligence: consistent with education level Insight: + limited insight Judgement: + limited judgement Vital Signs (Past 24 Hours) Last Vital Signs Temp 36.7 C 07/13/22 06:39 Pulse 64 07/13/22 06:42 Resp 16 07/13/22 06:39 BP 131/70 07/13/22 06:42 Pulse Ox 96 07/11/22 09:09 O2 Del Method 07/11/22 12:24 Results & Data ([facility]) Current Inpatient Medications Current Inpatient Medications: Current Inpatient Medications Acetaminophen (Acetaminophen 325 Mg Tab) 650 mg PO Q4H PRN PRN Reason: Headache or Minor Fever Stop: 08/10/22 12:15 Al Hydrox/Mg Hydrox/Simethicone (Aluminum/Magnesium Susp 30 Ml Udc) 30 ml PO Q4H PRN PRN Reason: GI Upset Stop: 08/10/22 12:15 Amlodipine Besylate (Amlodipine Besylate 5 Mg Tab) 10 mg PO QAM SHANA Stop: 08/11/22 08:59 Last Admin: 07/13/22 09:40 Dose: 10 mg Bismuth Subsalicylate (Bismuth Subsalicylate Liqd 236 Ml) 15 ml PO PRN PRN PRN Reason: Loose Stool Stop: 08/10/22 12:15 Buprenorphine/Naloxone (Buprenorphine/Naloxone 8/2 Mg Tab) 1 tab SL BID [facility] Stop: 08/09/22 22:44 Last Admin: 07/13/22 09:45 Dose: 1 tab Enalapril Maleate (Enalapril Maleate 5 Mg Tab) [facility] Stop: 08/11/22 08:59 Last Admin: 07/13/22 09:41 Dose: 5 mg Hydroxyzine HCl (Hydroxyzine Hcl 25 Mg Tab) 50 mg PO HSZ PRN PRN Reason: Insomnia Stop: 08/10/22 12:15 Last Admin: 07/12/22 20:45 Dose: 50 mg Hydroxyzine HCl (Hydroxyzine Hcl 25 Mg Tab) 25 mg PO Q4H PRN PRN Reason: Anxiety Stop: 08/10/22 12:15 Last Admin: 07/11/22 17:30 Dose: 25 mg Lorazepam (Lorazepam 0.5 Mg Tab) 0.[facility] Stop: 08/11/22 17:44 Last Admin: 07/13/22 09:44 Dose: 0.25 mg Magnesium Hydroxide (Magnesium Hydroxide Susp 30 Ml Udc) 30 ml PO DAILY PRN PRN Reason: Constipation Stop: 08/10/22 12:15 Melatonin (Melatonin 3 Mg Tab) 9 mg PO [facility] Stop: 08/10/22 21:59 Last Admin: 07/12/22 21:48 Dose: 9 mg Metformin HCl (Metformin Hcl 500 Mg Tab) 1,000 [facility] Stop: 08/10/22 13:29 Last Admin: 07/13/22 09:41 Dose: 1,000 mg Mirtazapine (Mirtazapine Tab 15 Mg Tab) 30 mg PO [facility] Stop: 08/10/22 21:59 Last Admin: 07/12/22 21:49 Dose: 30 mg Pantoprazole Sodium (Pantoprazole 40 Mg Tab) 40 mg PO [facility] Stop: 08/11/22 08:59 Last Admin: 07/13/22 09:42 Dose: 40 mg Propranolol HCl (Propranolol Hcl 20 Mg Tab) 20 mg PO BID PRN PRN Reason: Anxiety Stop: 08/10/22 13:17 Last Admin: 07/12/22 14:39 Dose: 20 mg Sertraline HCl (Sertraline Hcl 50 Mg Tablet) 75 mg PO QAM SHANA Stop: 08/12/22 08:59 Last Admin: 07/13/22 09:42 Dose: 75 mg Sodium Chloride (Sodium Chloride 0.65% Na Soln 45 Ml ([place])) 1 - 2 sprays NA PRN PRN PRN Reason: Nasal Dryness/Congestion Stop: 08/10/22 12:15 Mental Health & Subst Abuse Tx Psychiatrist Name of Psychiatrist: Chelly Psychiatrist's Date of Appointment with Psychiatrist: 07/25/22 Time of Appointment with Psychiatrist: 11:20am Psychiatric Appointment Comment: [address] [place], [place] Therapist Name of Therapist: [facility] Therapist's Therapy Appointment Comment: [phone] [place] Post Discharge Appointments Primary Care Physician Name Of Family Doctor: [facility] Primary Care Provider Appointment Comment: [phone] [place] Contact Information Discharge Discharge Address: [address] [place] [address] [place] [address]
[2022-07-13] MEDS: hydrOXYzine HCl 25 MG TAB PO PRN ×3 (15:02→22:32)
[2022-07-13] MEDS: MELATONIN 3 MG TAB PO SCH (22:33)
[2022-07-13] MEDS: MIRTAZAPINE TAB 15 MG TAB PO SCH (22:33)
[2022-07-14 08:36] LABS: Chol HDL Ratio 4.2 (0-5)
[2022-07-14] MEDS ORDERED: SERTRALINE HCL 50 MG TABLET PO ONE (09:00)
[2022-07-14] MEDS: amLODIPine BESYLATE 5 MG TAB PO SCH (09:12)
[2022-07-14] MEDS: ENALAPRIL MALEATE 5 MG TAB PO SCH (09:13)
[2022-07-14] MEDS: metFORMIN HCL 500 MG TAB PO SCH ×2 (09:13→17:08)
[2022-07-14] MEDS: BUPRENORPHINE/NALOXONE 8/2 MG TAB SL SCH ×2 (09:13→21:22)
[2022-07-14] MEDS: LORazepam 0.5 MG TAB PO SCH ×2 (09:13→17:08)
[2022-07-14] MEDS: PANTOprazole 40 MG TAB PO SCH (09:14)
[2022-07-14] MEDS: ARIPiprazole 5 MG TAB PO SCH (10:36)
--- NOTE | 2022-07-14 11:06 | Psychiatric Progress Note ---
Date of Service July 14, 2022 Impression / Recommendations Impression 66 yo female with hx of refractory ruminative depression since COVID. Partial response to current meds, worsened in the setting of family illness and health fears. MNPR due to age, fear of infection, very tearful. 07/14/22: cooperative with am labs, triglycerides >300 at baseline with LFT elevations compared to last stay that don't appear to be related to her medications in anyway. Will need monitored on Abilify. (1) Recurrent severe major depressive disorder with anxiety: Plan 07/14/22: will have PCP f/u for lipids and BP, BP improved now that less anxi ous. Cotninue Abilify trial, Ativan, and Remeron with additional prns. 07/13/22: Zoloft 25 mg tomorrow last dose. Risks/benefits/alternatives were reviewed re: antipsychotics for mood and/or psychosis. Discussion included but was not limited to metabolic side effects, risks of TD and suicidal thoughts. There were no abnormal motor movements at baseline. Fasting glucose and lipid panel ordered for baseline monitoring. She agreed to a trial of Abilify 2.5 mg daily for treatment refractory depression (adjunctive to mirtazapine). 07/12/22: taper Zoloft to 75 mg with plan to d/c. Remeron increased last pm. Patient did receive low dose Ativan (in consultation with pain med) last stay with some benefits and understands fall risk. Agreed to 0.5 mg now and 0.25 mg po BID for now. Consider Abilify augmentation. 07/11/22: The patient was admitted to the [facility] ([facility] mental [facility]) on q15 min checks (behavioral with suicide precautions) for safety. The patient will participate in group, recreational, and milieu therapies and will be offered additional individual and family sessions as clinically appropriate. Risks/benefits/alternatives reviewed re: current medications. Patient agrees to a trial of increase dose of Remeron. Inventory Assets Strengths: help seeking, animal lover Needs: improve coping, medical adjustment Suicide Risk Level Suicide Risk Level: Moderate (q15 min suicide checks) Risk Factors Assessment : Yes Do You Have Access To A Gun?: No ( owns gun but is secured ) Health Problems: Yes Mental Health Diagnoses: Yes Substance Use Disorders: No Previous Attempt: No Previous Psychiatric Hospitalization: Yes Protective Factors Assessment : Yes Employed: No Stable Relationships: Yes Supportive Family: Yes Interval History Identifying Information GALLO MOSHER is a 66-year-old F who currently lives in [place], has a recent admission to on 06/05/22-06/11/22, and was admitted on 07/11/22 12:16 on a 201 voluntary commitment for depression with anxiety and poor functioning. Chief Complaint remains quite med focussed Review of Systems Sleep Information Total Hours of Sleep: 6 Meal Information Percent Meal Consumed - Breakfast: 100 Percent Meal Consumed - Lunch: 100 Percent Meal Consumed - Dinner: 50 Subjective Subjective Patient was seen & assessed and interval progress reviewed with treatment team. Gallo has been able to engage in activities with peers, seems less ruminative but by evening last pm requested multiple doses of prn Vistaril. Physical Exam Psychiatric Orientation: alert and oriented x 3 Apperance: appropriately dressed and appropriately groomed Eye Contact: good eye contact Motor Behavior: no abnormal motor movements Speech: normal rate/rhythm/volume of speech Affect: + depressed affect Mood: + depressed mood Thought Process: + perseveration Thought Content: reality based without delusions Suicidal Thoughts: denies suicidal plan and denies suicidal intent; + reports suicidal thoughts Homicidal Thoughts: denies homicidal thoughts Hallucinations: no auditory hallucinations and no visual hallucinations Cognition: attention grossly intact and language grossly intact Estimated Intelligence: consistent with education level Insight: + limited insight Judgement: + limited judgement Vital Signs (Past 24 Hours) Last Vital Signs Temp 36.5 C 07/14/22 06:30 Pulse 73 07/14/22 06:31 Resp 16 07/14/22 06:30 BP 127/78 07/14/22 06:31 Pulse Ox 96 07/11/22 09:09 O2 Del Method 07/11/22 12:24 Results & Data ([facility]) Laboratory Results Laboratory Results - last 24 hr 07/14/22 07:40 Fasting Glucose 112 H Triglycerides 333 H Cholesterol 158 LDL Cholesterol, Calc 53 VLDL Cholesterol, Calc 67 H HDL Cholesterol 38 Cholesterol/HDL Ratio 4.2 Current Inpatient Medications Current Inpatient Medications: Current Inpatient Medications Acetaminophen (Acetaminophen 325 Mg Tab) 650 mg PO Q4H PRN PRN Reason: Headache or Minor Fever Stop: 08/10/22 12:15 Al Hydrox/Mg Hydrox/Simethicone (Aluminum/Magnesium Susp 30 Ml Udc) 30 ml PO Q4H PRN PRN Reason: GI Upset Stop: 08/10/22 12:15 Amlodipine Besylate (Amlodipine Besylate 5 Mg Tab) [facility] Stop: 08/11/22 08:59 Last Admin: 07/14/22 09:12 Dose: 10 mg Aripiprazole (Aripiprazole 5 Mg Tab) 2.5 mg [facility] Stop: 08/13/22 09:24 Last Admin: 07/14/22 10:36 Dose: 2.5 mg Bismuth Subsalicylate (Bismuth Subsalicylate Liqd 236 Ml) 15 ml PO PRN PRN PRN Reason: Loose Stool Stop: 08/10/22 12:15 Buprenorphine/Naloxone (Buprenorphine/Naloxone 8/2 Mg Tab) 1 tab SL BID [facility] Stop: 08/09/22 22:44 Last Admin: 07/14/22 09:13 Dose: 1 tab Enalapril Maleate (Enalapril Maleate 5 Mg Tab) 5 mg PO [facility] Stop: 08/11/22 08:59 Last Admin: 07/14/22 09:13 Dose: 5 mg Hydroxyzine HCl (Hydroxyzine Hcl 25 Mg Tab) 50 mg PO HSZ PRN PRN Reason: Insomnia Stop: 08/10/22 12:15 Last Admin: 07/13/22 22:32 Dose: 50 mg Hydroxyzine HCl (Hydroxyzine Hcl 25 Mg Tab) 25 mg PO Q4H PRN PRN Reason: Anxiety Stop: 08/10/22 12:15 Last Admin: 07/13/22 19:18 Dose: 25 mg Lorazepam (Lorazepam 0.5 Mg Tab) 0.[facility] Stop: 08/12/22 17:44 Last Admin: 07/14/22 09:13 Dose: 0.5 mg Magnesium Hydroxide (Magnesium Hydroxide Susp 30 Ml Udc) 30 ml PO DAILY PRN PRN Reason: Constipation Stop: 08/10/22 12:15 Melatonin (Melatonin 3 Mg Tab) 9 mg PO HS [facility] Stop: 08/10/22 21:59 Last Admin: 07/13/22 22:33 Dose: 9 mg Metformin HCl (Metformin Hcl 500 Mg Tab) 1,000 mg [facility] Stop: 08/10/22 13:29 Last Admin: 07/14/22 09:13 Dose: 1,000 mg Mirtazapine (Mirtazapine Tab 15 Mg Tab) 30 mg PO HS SHANA Stop: 08/10/22 21:59 Last Admin: 07/13/22 22:33 Dose: 30 mg Pantoprazole Sodium (Pantoprazole 40 Mg Tab) 40 mg PO QAM SHANA Stop: 08/11/22 08:59 Last Admin: 07/14/22 09:14 Dose: 40 mg Propranolol HCl (Propranolol Hcl 20 Mg Tab) 20 mg PO BID PRN PRN Reason: Anxiety Stop: 08/10/22 13:17 Last Admin: 07/12/22 14:39 Dose: 20 mg Sodium Chloride (Sodium Chloride 0.65% Na Soln 45 Ml ([place])) 1 - 2 sprays NA PRN PRN PRN Reason: Nasal Dryness/Congestion Stop: 08/10/22 12:15 Mental Health & Subst Abuse Tx Psychiatrist Name of Psychiatrist: Chelly Psychiatrist's Date of Appointment with Psychiatrist: 07/25/22 Time of Appointment with Psychiatrist: 11:20am Psychiatric Appointment Comment: [address] [place], [place] Therapist Name of Therapist: [facility] Therapist's Therapy Appointment Comment: [phone] [place] Post Discharge Appointments Primary Care Physician Name Of Family Doctor: [facility] seeing Mookie Rosario Primary Care Date of Appointment with PCP: 07/19/22 Time of Appointment with PCP: 9:05am arrival for 9:20am appointment Provider Appointment Comment: [phone] [place] Contact Information Discharge Discharge Address: [address] [place], [place] [address] [address]
[2022-07-14] MEDS ORDERED: COUGH DROP (SUGAR FREE) LOZ 24 LOZ/1 BOX BUCCAL PRN (14:35)
[2022-07-14] MEDS: MIRTAZAPINE TAB 15 MG TAB PO SCH (21:22)
[2022-07-14] MEDS: MELATONIN 3 MG TAB PO SCH (21:22)
--- NOTE | 2022-07-15 09:08 | Psychiatric Progress Note ---
Date of Service July 15, 2022 Impression / Recommendations Impression 66 yo female with hx of refractory ruminative depression since COVID. Partial response to current meds, worsened in the setting of family illness and health fears. Diagnostically consistent with major depression with anxious distress and DELILAH with panic attacks. She is deemed unstable and requires psychiatric hospitalization for diagnostic clarification, safety and stabilization, medication management and development of further coping skills. MNPR due to age, fear of infection, very tearful. 07/15/22: Ongoing depression and anxiety with SI and panic attacks. Reviewed interim progress per Dr. Deluna's notes. Tolerating initiation of abilify so far with some improvement in morning ruminations but remains depressed with tearfulness. 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 07/14/22: will have PCP f/u for lipids and BP, BP improved now that less anxious. Cotninue Abilify trial, Ativan, and Remeron with additional prns. 07/13/22: Zoloft 25 mg tomorrow last dose. Risks/benefits/alternatives were reviewed re: antipsychotics for mood and/or psychosis. Discussion included but was not limited to metabolic side effects, risks of TD and suicidal thoughts. There were no abnormal motor movements at baseline. Fasting glucose and lipid panel ordered for baseline monitoring. She agreed to a trial of Abilify 2.5 mg daily for treatment refractory depression (adjunctive to mirtazapine). 07/12/22: taper Zoloft to 75 mg with plan to d/c. Remeron increased last pm. Patient did receive low dose Ativan (in consultation with pain med) last stay with some benefits and understands fall risk. Agreed to 0.5 mg now and 0.25 mg po BID for now. Consider Abilify augmentation. 07/11/22: [facility] on q15 min checks (behavioral with suicide precautions) for safety. The patient will participate in group, recreational, and milieu therapies and will be offered additional individual and family sessions as clinically appropriate. Risks/benefits/alternatives reviewed re: current medications. Patient agrees to a trial of increase dose of Remeron. Inventory Assets Strengths: help seeking, animal lover Needs: improve coping, medical adjustment Suicide Risk Level Suicide Risk Level: Moderate (q15 min suicide checks) (severe depression and anxiety with SI but feels safe in the hospital and agrees to alert nursing if she feels unable to remain safe or develops SI with plan or intent ) Risk Factors Assessment : Yes Do You Have Access To A Gun?: No ( owns gun but is secured ) Health Problems: Yes Mental Health Diagnoses: Yes Substance Use Disorders: No Previous Attempt: No Previous Psychiatric Hospitalization: Yes Protective Factors Assessment : Yes Employed: No Stable Relationships: Yes Supportive Family: Yes Interval History Identifying Information RICKI MOSHER is a 66-year-old F who currently lives in [place], has a recent admission to on 06/05/22-06/11/22, and was admitted on 07/11/22 12:16 on a 201 voluntary commitment for depression with anxiety and poor functioning. Chief Complaint "I just couldn't function, I'm getting anxious again now it's been building". Review of Systems Sleep Information Total Hours of Sleep: 7.5 Meal Information Percent Meal Consumed - Breakfast: 100 Percent Meal Consumed - Lunch: 100 Percent Meal Consumed - Dinner: 75 Subjective Subjective Patient was seen & assessed and interval progress reviewed with treatment team nursing and social work. Remains depressed with severe anxiety and panic attacks. Attending groups, finding them helpful as well as 1-on-1 discussions [facility] counselors. Feels anxiety was a bit improved this morning since starting abilify. Denies any side effects. Likes higher dose of mirtazapine. Intermittently tearful especially due to guilt of ongoing depression and how her inability to function has impacted her family such as guilt about not decorating or being as present for Colleen as she typically loves this time of year. Physical Exam Psychiatric Orientation: alert and oriented x 3 Apperance: appropriately dressed and appropriately groomed Eye Contact: good eye contact Motor Behavior: no abnormal motor movements Speech: normal rate/rhythm/volume of speech Affect: + depressed affect and + tearful affect Mood: + depressed mood and + anxious mood Thought Process: + perseveration Thought Content: reality based without delusions Suicidal Thoughts: denies suicidal plan and denies suicidal intent; + reports suicidal thoughts Homicidal Thoughts: denies homicidal thoughts Hallucinations: no auditory hallucinations and no visual hallucinations Cognition: attention grossly intact and language grossly intact Estimated Intelligence: consistent with education level Insight: + limited insight Judgement: + limited judgement Vital Signs (Past 24 Hours) Last Vital Signs Temp 36.8 C 07/15/22 06:00 Pulse 77 07/15/22 06:40 Resp 16 07/15/22 06:00 BP 136/88 07/15/22 06:40 Pulse Ox 95 07/15/22 06:00 O2 Del Method 07/15/22 06:00 Results & Data ([facility]) Current Inpatient Medications Current Inpatient Medications: Current Inpatient Medications Acetaminophen (Acetaminophen 325 Mg Tab) 650 mg PO Q4H PRN PRN Reason: Headache or Minor Fever Stop: 08/10/22 12:15 Al Hydrox/Mg Hydrox/Simethicone (Aluminum/Magnesium Susp 30 Ml Udc) 30 ml PO Q4H PRN PRN Reason: GI Upset Stop: 08/10/22 12:15 Amlodipine Besylate (Amlodipine Besylate 5 Mg Tab) [facility] Stop: 08/11/22 08:59 Last Admin: 07/14/22 09:12 Dose: 10 mg Aripiprazole (Aripiprazole 5 Mg Tab) 2.5 mg [facility] Stop: 08/13/22 09:24 Last Admin: 07/14/22 10:36 Dose: 2.5 mg Bismuth Subsalicylate (Bismuth Subsalicylate Liqd 236 Ml) 15 ml PO PRN PRN PRN Reason: Loose Stool Stop: 08/10/22 12:15 Buprenorphine/Naloxone (Buprenorphine/Naloxone 8/2 Mg Tab) 1 tab SL BID [facility] Stop: 08/09/22 22:44 Last Admin: 07/14/22 21:22 Dose: 1 tab Enalapril Maleate (Enalapril Maleate 5 Mg Tab) 5 [facility] Stop: 08/11/22 08:59 Last Admin: 07/14/22 09:13 Dose: 5 mg Hydroxyzine HCl (Hydroxyzine Hcl 25 Mg Tab) 50 mg PO HSZ PRN PRN Reason: Insomnia Stop: 08/10/22 12:15 Last Admin: 07/13/22 22:32 Dose: 50 mg Hydroxyzine HCl (Hydroxyzine Hcl 25 Mg Tab) 25 mg PO Q4H PRN PRN Reason: Anxiety Stop: 08/10/22 12:15 Last Admin: 07/13/22 19:18 Dose: 25 mg Lorazepam (Lorazepam 0.5 Mg Tab) 0.5 mg PO BIDM [facility] Stop: 08/12/22 17:44 Last Admin: 07/14/22 17:08 Dose: 0.5 mg Magnesium Hydroxide (Magnesium Hydroxide Susp 30 Ml Udc) 30 ml PO DAILY PRN PRN Reason: Constipation Stop: 08/10/22 12:15 Melatonin (Melatonin 3 Mg Tab) 9 mg PO HS [facility] Stop: 08/10/22 21:59 Last Admin: 07/14/22 21:22 Dose: 9 mg Menthol (Cough Drop (Sugar Free) Rodolfo 24 Rodolfo/1 Box) 1 rodolfo BUCCAL [id number] PRN PRN Reason: Sore Throat Stop: 08/13/22 14:34 Metformin HCl (Metformin Hcl 500 Mg Tab) 1,000 mg PO BIDM [facility] Stop: 08/10/22 13:29 Last Admin: 07/14/22 17:08 Dose: 1,000 mg Mirtazapine (Mirtazapine Tab 15 Mg Tab) 30 mg PO [facility] Stop: 08/10/22 21:59 Last Admin: 07/14/22 21:22 Dose: 30 mg Pantoprazole Sodium (Pantoprazole 40 Mg Tab) 40 mg PO QAM [facility] Stop: 08/11/22 08:59 Last Admin: 07/14/22 09:14 Dose: 40 mg Propranolol HCl (Propranolol Hcl 20 Mg Tab) 20 mg PO BID PRN PRN Reason: Anxiety Stop: 08/10/22 13:17 Last Admin: 07/12/22 14:39 Dose: 20 mg Sodium Chloride (Sodium Chloride 0.65% Na Soln 45 Ml ([place])) 1 - 2 sprays NA PRN PRN PRN Reason: Nasal Dryness/Congestion Stop: 08/10/22 12:15 Mental Health & Subst Abuse Tx Psychiatrist Name of Psychiatrist: Chelly Psychiatrist's Date of Appointment with Psychiatrist: 07/25/22 Time of Appointment with Psychiatrist: 11:20am Psychiatric Appointment Comment: [address] [place], [place] Therapist Name of Therapist: [facility] Therapist's Therapy Appointment Comment: [address] Post Discharge Appointments Primary Care Physician [facility] Date of Appointment with PCP: 07/19/22 Time of Appointment with PCP: 9:05am arrival for 9:20am appointment Provider Appointment Comment: Neida Kumar [place] Contact Information Discharge Discharge Address: [address] [place] [address], [place] [address]
[2022-07-15] MEDS: amLODIPine BESYLATE 5 MG TAB PO SCH (09:41)
[2022-07-15] MEDS: metFORMIN HCL 500 MG TAB PO SCH ×2 (09:42→17:17)
[2022-07-15] MEDS: PANTOprazole 40 MG TAB PO SCH (09:42)
[2022-07-15] MEDS: ENALAPRIL MALEATE 5 MG TAB PO SCH (09:42)
[2022-07-15] MEDS: ARIPiprazole 5 MG TAB PO SCH (09:42)
[2022-07-15] MEDS: LORazepam 0.5 MG TAB PO SCH ×2 (09:45→17:17)
[2022-07-15] MEDS: BUPRENORPHINE/NALOXONE 8/2 MG TAB SL SCH ×2 (09:47→22:28)
[2022-07-15] MEDS: ACETAMINOPHEN 325 MG TAB PO PRN (20:49)
[2022-07-15] MEDS: MELATONIN 3 MG TAB PO SCH (22:29)
[2022-07-15] MEDS: MIRTAZAPINE TAB 15 MG TAB PO SCH (22:29)
[2022-07-16] MEDS: amLODIPine BESYLATE 5 MG TAB PO SCH (09:01)
[2022-07-16] MEDS: ARIPiprazole 5 MG TAB PO SCH ×2 (09:02→15:55)
--- NOTE | 2022-07-16 09:02 | Psychiatric Progress Note ---
Date of Service July 16, 2022 Impression / Recommendations Impression 66 yo female with hx of refractory ruminative depression since COVID. Partial response to current meds, worsened in the setting of family illness and health fears. Diagnostically consistent with major depression with anxious distress and DELILAH with panic attacks. She is deemed unstable and requires psychiatric hospitalization for diagnostic clarification, safety and stabilization, medication management and development of further coping skills. MNPR due to age, fear of infection, very tearful. 07/16/22: Ongoing depression and anxiety with SI and panic attacks. Consents to increased dose of abilify to further target challenging symptoms in late afternoon of anxiety and depression with ruminations. Processing grief from of friend's mother. (1) Recurrent severe major depressive disorder with anxiety: Plan 07/16/22: Increase abilify to 2.5mg po 0800 and 1500. 07/15/22: Continue current medications and tx plan. 07/14/22: will have PCP f/u for lipids and BP, BP improved now that less anxious. Cotninue Abilify trial, Ativan, and Remeron with additional prns. 07/13/22: Zoloft 25 mg tomorrow last dose. Risks/benefits/alternatives were rev iewed re: antipsychotics for mood and/or psychosis. Discussion included but was not limited to metabolic side effects, risks of TD and suicidal thoughts. There were no abnormal motor movements at baseline. Fasting glucose and lipid panel ordered for baseline monitoring. She agreed to a trial of Abilify 2.5 mg daily for treatment refractory depression (adjunctive to mirtazapine). 07/12/22: taper Zoloft to 75 mg with plan to d/c. Remeron increased last pm. Patient did receive low dose Ativan (in consultation with pain med) last stay with some benefits and understands fall risk. Agreed to 0.5 mg now and 0.25 mg po BID for now. Consider Abilify augmentation. 07/11/22: [facility] on q15 min checks (behavioral with suicide precautions) for safety. The patient will participate in group, recreational, and milieu therapies and will be offered additional individual and family sessions as clinically appropriate. Risks/benefits/alternatives reviewed re: current medications. Patient agrees to a trial of increase dose of Remeron. Inventory Assets Strengths: help seeking, animal lover Needs: improve coping, medical adjustment Suicide Risk Level Suicide Risk Level: Moderate (q15 min suicide checks) (severe depression and anxiety with SI but feels safe in the hospital and agrees to alert nursing if she feels unable to remain safe or develops SI with plan or intent ) Risk Factors Assessment : Yes Do You Have Access To A Gun?: No ( owns gun but is secured ) Health Problems: Yes Mental Health Diagnoses: Yes Substance Use Disorders: No Previous Attempt: No Previous Psychiatric Hospitalization: Yes Protective Factors Assessment : Yes Employed: No Stable Relationships: Yes Supportive Family: Yes Interval History Identifying Information RICKI MOSHER is a 66-year-old F who currently lives in [place], has a recent admission to on 06/05/22-06/11/22, and was admitted on 07/11/22 12:16 on a 201 voluntary commitment for depression with anxiety and poor functioning. Chief Complaint "I feel guilty I can't be there with her". Review of Systems Sleep Information Total Hours of Sleep: 5.5 Meal Information Percent Meal Consumed - Breakfast: 100 Percent Meal Consumed - Lunch: 100 Percent Meal Consumed - Dinner: 100 Subjective Subjective Patient was seen & assessed and interval progress reviewed with treatment team nursing and social work. Increased anxiety last evening and somatic symptoms. Feels she slept well. Had family meeting this morning. [place] that her best friend's mother which brought on additional guilt about being in the hospital. Feels anxiety and depression in the morning is lessening in that she is able to attend to ADLs but ruminations and sense of being paralyzed worsens in the afternoon. Reviewed medication options. Physical Exam Psychiatric Orientation: alert and oriented x 3 Apperance: appropriately dressed and appropriately groomed Eye Contact: good eye contact Motor Behavior: no abnormal motor movements Speech: normal rate/rhythm/volume of speech Affect: + depressed affect and + tearful affect Mood: + depressed mood and + anxious mood Thought Process: + perseveration Thought Content: reality based without delusions Suicidal Thoughts: denies suicidal plan and denies suicidal intent; + reports suicidal thoughts Homicidal Thoughts: denies homicidal thoughts Hallucinations: no auditory hallucinations and no visual hallucinations Cognition: attention grossly intact and language grossly intact Estimated Intelligence: consistent with education level Insight: + limited insight Judgement: + limited judgement Vital Signs (Past 24 Hours) Last Vital Signs Temp 36.3 C L 07/16/22 06:00 Pulse 78 07/16/22 06:46 Resp 18 07/16/22 06:00 BP 160/93 H 07/16/22 06:46 Pulse Ox 98 07/16/22 06:00 O2 Del Method 07/16/22 06:00 Results & Data ([facility]) Current Inpatient Medications Current Inpatient Medications: Current Inpatient Medications Acetaminophen (Acetaminophen 325 Mg Tab) 650 mg PO Q4H PRN PRN Reason: Headache or Minor Fever Stop: 08/10/22 12:15 Last Admin: 07/15/22 20:49 Dose: 650 mg Al Hydrox/Mg Hydrox/Simethicone (Aluminum/Magnesium Susp 30 Ml Udc) 30 ml PO Q4H PRN PRN Reason: GI Upset Stop: 08/10/22 12:15 Amlodipine Besylate ([facility]ip[facility] 5 Mg Tab) [facility] Stop: 08/11/22 08:59 Last Admin: 07/15/22 09:41 Dose: 10 mg Aripiprazole (Aripiprazole 5 Mg Tab) 2.5 mg PO QAM [facility] Stop: 08/13/22 09:24 Last Admin: 07/15/22 09:42 Dose: 2.5 mg Bismuth Subsalicylate (Bismuth Subsalicylate Liqd 236 Ml) 15 ml PO PRN PRN PRN Reason: Loose Stool Stop: 08/10/22 12:15 Buprenorphine/Naloxone (Buprenorphine/Naloxone 8/2 Mg Tab) 1 tab SL BID [facility] Stop: 08/09/22 22:44 Last Admin: 07/15/22 22:28 Dose: 1 tab Enalapril Maleate (Enalapril Maleate 5 Mg Tab) 5 mg PO QAM [facility] Stop: 08/11/22 08:59 Last Admin: 07/15/22 09:42 Dose: 5 mg Hydroxyzine HCl (Hydroxyzine Hcl 25 Mg Tab) 50 mg PO HSZ PRN PRN Reason: Insomnia Stop: 08/10/22 12:15 Last Admin: 07/13/22 22:32 Dose: 50 mg Hydroxyzine HCl (Hydroxyzine Hcl 25 Mg Tab) 25 mg PO Q4H PRN PRN Reason: Anxiety Stop: 08/10/22 12:15 Last Admin: 07/13/22 19:18 Dose: 25 mg Lorazepam (Lorazepam 0.5 Mg Tab) 0.5 mg PO BIDM [facility] Stop: 08/12/22 17:44 Last Admin: 07/15/22 17:17 Dose: 0.5 mg Magnesium Hydroxide (Magnesium Hydroxide Susp 30 Ml Udc) 30 ml PO DAILY PRN PRN Reason: Constipation Stop: 08/10/22 12:15 Melatonin (Melatonin 3 Mg Tab) 9 mg PO [facility] Stop: 08/10/22 21:59 Last Admin: 07/15/22 22:29 Dose: 9 mg Menthol (Cough Drop (Sugar Free) Rodolfo 24 Rodolfo/1 Box) 1 rodolfo BUCCAL 5XDQ2H PRN PRN Reason: Sore Throat Stop: 08/13/22 14:34 Metformin HCl (Metformin Hcl 500 Mg Tab) 1,000 mg PO BIDM [facility] Stop: 08/10/22 13:29 Last Admin: 07/15/22 17:17 Dose: 1,000 mg Mirtazapine (Mirtazapine Tab 15 Mg Tab) 30 mg PO [facility] Stop: 08/10/22 21:59 Last Admin: 07/15/22 22:29 Dose: 30 mg Pantoprazole Sodium (Pantoprazole 40 Mg Tab) [facility] Stop: 08/11/22 08:59 Last Admin: 07/15/22 09:42 Dose: 40 mg Propranolol HCl (Propranolol Hcl 20 Mg Tab) 20 mg PO BID PRN PRN Reason: Anxiety Stop: 08/10/22 13:17 Last Admin: 07/12/22 14:39 Dose: 20 mg Sodium Chloride (Sodium Chloride 0.65% Na Soln 45 Ml (House)) 1 - 2 sprays NA PRN PRN PRN Reason: Nasal Dryness/Congestion Stop: 08/10/22 12:15 Mental Health & Subst Abuse Tx Psychiatrist Name of Psychiatrist: [facility] Psych[facility] Date of Appointment with Psychiatrist: 07/25/22 Time of Appointment with Psychiatrist: 11:20am Psychiatric Appointment Comment: [address] [place], [place] Therapist Name of Therapist: [facility] Therapist's Therapy Appointment Comment: [phone] [place] Post Discharge Appointments Primary Care Physician Name Of Family Doctor: [facility] seeing Mookie Rosario Primary Care Date of Appointment with PCP: 07/19/22 Time of Appointment with PCP: 9:05am arrival for 9:20am appointment Provider Appointment Comment: [phone] [place] Contact Information Discharge Discharge Address: [address] [place] [address] YANCY Campos [id number]
[2022-07-16] MEDS: ENALAPRIL MALEATE 5 MG TAB PO SCH (09:04)
[2022-07-16] MEDS: metFORMIN HCL 500 MG TAB PO SCH ×2 (09:05→17:52)
[2022-07-16] MEDS: PANTOprazole 40 MG TAB PO SCH (09:06)
[2022-07-16] MEDS: BUPRENORPHINE/NALOXONE 8/2 MG TAB SL SCH ×2 (09:09→21:09)
[2022-07-16] MEDS: LORazepam 0.5 MG TAB PO SCH ×2 (09:09→17:54)
[2022-07-16] MEDS: MELATONIN 3 MG TAB PO SCH (21:09)
[2022-07-16] MEDS: MIRTAZAPINE TAB 15 MG TAB PO SCH (21:09)
[2022-07-16] MEDS: TROLAMINE SALICYLATE 10% CRM 255 APPLN/85 GM TUBE EXT PRN (21:13)
[2022-07-16] MEDS: ACETAMINOPHEN 325 MG TAB PO PRN (23:32)
[2022-07-17] MEDS: LORazepam 0.5 MG TAB PO SCH ×2 (08:51→20:58)
[2022-07-17] MEDS: BUPRENORPHINE/NALOXONE 8/2 MG TAB SL SCH ×2 (08:51→20:58)
[2022-07-17] MEDS: ARIPiprazole 5 MG TAB PO SCH ×2 (08:52→15:11)
[2022-07-17] MEDS: amLODIPine BESYLATE 5 MG TAB PO SCH (08:53)
--- NOTE | 2022-07-17 08:54 | Psychiatric Progress Note ---
Date of Service July 17, 2022 Impression / Recommendations Impression 66 yo female with hx of refractory ruminative depression since COVID. Partial response to current meds, worsened in the setting of family illness and health fears. Diagnostically consistent with major depression with anxious distress and DELILAH with panic attacks. She is deemed unstable and requires psychiatric hospitalization for diagnostic clarification, safety and stabilization, medication management and development of further coping skills. MNPR due to age, fear of infection, very tearful. 07/17/22: Ongoing depression and anxiety with severe rumination, tearfulness and panic attacks. Improving with addition of afternoon abilify yesterday without any side effects. Will switch ativan later in the evening to help with anxiety before bed. (1) Recurrent severe major depressive disorder with anxiety: Plan 07/17/22: Switch dosing of ativan to 0800 and 2100 07/16/22: Increase abilify to 2.5mg po 0800 and 1500. 07/15/22: Continue current medications and tx plan. 07/14/22: will have PCP f/u for lipids and BP, BP improved now that less anxious. Cotninue Abilify trial, Ativan, and Remeron with additional prns. 07/13/22: Zoloft 25 mg tomorrow last dose. Risks/benefits/alternatives were reviewed re: antipsychotics for mood and/or psychosis. Discussion included but was not limited to metabolic side effects, risks of TD and suicidal thoughts. There were no abnormal motor movements at baseline. Fasting glucose and lipid panel ordered for baseline monitoring. She agreed to a trial of Abilify 2.5 mg daily for treatment refractory depression (adjunctive to mirtazapine). 07/12/22: taper Zoloft to 75 mg with plan to d/c. Remeron increased last pm. Patient did receive low dose Ativan (in consultation with pain med) last stay with some benefits and understands fall risk. Agreed to 0.5 mg now and 0.25 mg po BID for now. Consider Abilify augmentation. 07/11/22: The patient was admitted to the [facility]) on q15 min checks (behavioral with suicide precautions) for safety. The patient will participate in group, recreational, and milieu therapies and will be offered additional individual and family sessions as clinically appropriate. Risks/benefits/alternatives reviewed re: current medications. Patient agrees to a trial of increase dose of Remeron. Inventory Assets Strengths: help seeking, animal lover Needs: improve coping, medical adjustment Suicide Risk Level Suicide Risk Level: Moderate (q15 min suicide checks) (depression and anxiety with SI but feels safe in the hospital and agrees to alert nursing if she feels unable to remain safe or develops SI with plan or intent ) Risk Factors Assessment : Yes Do You Have Access To A Gun?: No ( owns gun but is secured ) Health Problems: Yes Mental Health Diagnoses: Yes Substance Use Disorders: No Previous Attempt: No Previous Psychiatric Hospitalization: Yes Protective Factors Assessment : Yes Employed: No Stable Relationships: Yes Supportive Family: Yes Interval History Identifying Information RICKI MOSHER is a 66-year-old F who currently lives in [place], has a recent admission to on 06/05/22-06/11/22, and was admitted on 07/11/22 12:16 on a 201 voluntary commitment for depression with anxiety and poor functioning. Chief Complaint "I don't have that feeling like a bomb is about to drop". Review of Systems Sleep Information Total Hours of Sleep: 5.5 Meal Information Percent Meal Consumed - Breakfast: 100 Percent Meal Consumed - Lunch: 100 Percent Meal Consumed - Dinner: 100 Subjective Subjective Patient was seen & assessed and interval progress reviewed with treatment team nursing and social work. She feels her anxiety is lessening and depression is improving. No SI today. She feels the additional dose of abilify helped with reducing afternoon anxiety though it spiked again around 8pm. She'd like to move timing of ativan to later in evening. Reviewed that when she develops the severe anxiety with panic attack this causes her to feel hopeless and helpless and worsens depression which then leads to thoughts of guilt and feeling overwhelmed as "you can't live like that, it's no way to live". However, she is feeling more hopeful as the medication changes seem to be helping. Still tearful. Feels she is sleeping well. Physical Exam Psychiatric Orientation: alert and oriented x 3 Apperance: appropriately dressed and appropriately groomed Eye Contact: good eye contact Motor Behavior: no abnormal motor movements Speech: normal rate/rhythm/volume of speech Affect: + depressed affect, + anxious affect and + tearful affect Mood: + depressed mood and + anxious mood Thought Process: + circumstantial thought process Thought Content: reality based without delusions Suicidal Thoughts: denies suicidal thoughts, denies suicidal plan and denies suicidal intent Homicidal Thoughts: denies homicidal thoughts Hallucinations: no auditory hallucinations and no visual hallucinations Cognition: attention grossly intact and language grossly intact Estimated Intelligence: consistent with education level Insight: + limited insight Judgement: + limited judgement Vital Signs (Past 24 Hours) Last Vital Signs Temp 36.4 C L 07/17/22 06:34 Pulse 76 07/17/22 06:35 Resp 16 07/17/22 06:34 BP 136/82 07/17/22 06:35 Pulse Ox 98 07/16/22 06:00 O2 Del Method 07/16/22 06:00 Results & Data ([facility]) Current Inpatient Medications Current Inpatient Medications: Current Inpatient Medications Acetaminophen (Acetaminophen 325 Mg Tab) 650 mg PO Q4H PRN PRN Reason: Headache or Minor Fever Stop: 08/10/22 12:15 Last Admin: 07/16/22 23:32 Dose: 650 mg Al Hydrox/Mg Hydrox/Simethicone (Aluminum/Magnesium Susp 30 Ml Udc) 30 ml PO Q4H PRN PRN Reason: GI Upset Stop: 08/10/22 12:15 Amlodipine Besylate (Amlodipine Besylate 5 Mg Tab) 10 mg PO [facility] Stop: 08/11/22 08:59 Last Admin: 07/16/22 09:01 Dose: 10 mg Aripiprazole (Aripiprazole 5 Mg Tab) 2.5 mg PO BID@0800,1500 [facility] Stop: 08/15/22 14:59 Last Admin: 07/16/22 15:55 Dose: 2.5 mg Bismuth Subsalicylate (Bismuth Subsalicylate Liqd 236 Ml) 15 ml PO PRN PRN PRN Reason: Loose Stool Stop: 08/10/22 12:15 Buprenorphine/Naloxone (Buprenorphine/Naloxone 8/2 Mg Tab) 1 tab SL BID [facility] Stop: 08/09/22 22:44 Last Admin: 07/16/22 21:09 Dose: 1 tab Enalapril Maleate (Enalapril Maleate 5 Mg Tab) 5 mg PO QAM [facility] Stop: 08/11/22 08:59 Last Admin: 07/16/22 09:04 Dose: 5 mg Hydroxyzine HCl (Hydroxyzine Hcl 25 Mg Tab) 50 mg PO HSZ PRN PRN Reason: Insomnia Stop: 08/10/22 12:15 Last Admin: 07/13/22 22:32 Dose: 50 mg Hydroxyzine HCl (Hydroxyzine Hcl 25 Mg Tab) 25 mg PO Q4H PRN PRN Reason: Anxiety Stop: 08/10/22 12:15 Last Admin: 07/13/22 19:18 Dose: 25 mg Lorazepam (Lorazepam 0.5 Mg Tab) 0.5 mg PO BIDM [facility] Stop: 08/12/22 17:44 Last Admin: 07/16/22 17:54 Dose: 0.5 mg Magnesium Hydroxide (Magnesium Hydroxide Susp 30 Ml Udc) 30 ml PO DAILY PRN PRN Reason: Constipation Stop: 08/10/22 12:15 Melatonin (Melatonin 3 Mg Tab) 9 mg PO HS [facility] Stop: 08/10/22 21:59 Last Admin: 07/16/22 21:09 Dose: 9 mg Menthol (Cough Drop (Sugar Free) Rodolfo 24 Rodolfo/1 Box) 1 rodolfo BUCCAL 5XDQ2H PRN PRN Reason: Sore Throat Stop: 08/13/22 14:34 Metformin HCl (Metformin Hcl 500 Mg Tab) 1,000 mg PO BIDM [facility] Stop: 08/10/22 13:29 Last Admin: 07/16/22 17:52 Dose: 1,000 mg Mirtazapine (Mirtazapine Tab 15 Mg Tab) 30 mg PO [facility] Stop: 08/10/22 21:59 Last Admin: 07/16/22 21:09 Dose: 30 mg Pantoprazole Sodium (Pantoprazole 40 Mg Tab) [facility] Stop: 08/11/22 08:59 Last Admin: 07/16/22 09:06 Dose: 40 mg Propranolol HCl (Propranolol Hcl 20 Mg Tab) 20 mg PO BID PRN PRN Reason: Anxiety Stop: 08/10/22 13:17 Last Admin: 07/12/22 14:39 Dose: 20 mg Sodium Chloride (Sodium Chloride 0.65% Na Soln 45 Ml ([place])) 1 - 2 sprays NA PRN PRN PRN Reason: Nasal Dryness/Congestion Stop: 08/10/22 12:15 Trolamine Salicylate (Trolamine Salicylate 10% Crm 255 Appln/85 Gm Tube) 1 appln EXT Q12 PRN PRN Reason: Pain Stop: 08/15/22 21:00 Last Admin: 07/16/22 21:13 Dose: 1 appln Mental Health & Subst Abuse Tx Psychiatrist Name of Psychiatrist: [facility] Date of Appointment with Psychiatrist: 07/25/22 Time of Appointment with Psychiatrist: 11:20am Psychiatric Appointment Comment: [address] [place], [place] Therapist Name of Therapist: [facility] Therapist's Therapy Appointment Comment: [phone] [place] Post Discharge Appointments Primary Care [facility] Date of Appointment with PCP: 07/19/22 Time of Appointment with PCP: 9:05am arrival for 9:20am appointment Provider Appointment Comment: [phone] [place] Contact Information Discharge Discharge Address: [address] [place], [place] [address] [address]
[2022-07-17] MEDS: ENALAPRIL MALEATE 5 MG TAB PO SCH (08:56)
[2022-07-17] MEDS: metFORMIN HCL 500 MG TAB PO SCH ×2 (08:56→17:19)
[2022-07-17] MEDS: PANTOprazole 40 MG TAB PO SCH (08:57)
[2022-07-17] MEDS: hydrOXYzine HCl 25 MG TAB PO PRN (17:27)
[2022-07-17] MEDS: MELATONIN 3 MG TAB PO SCH (20:59)
[2022-07-17] MEDS: MIRTAZAPINE TAB 15 MG TAB PO SCH (20:59)
--- NOTE | 2022-07-18 08:50 | Psychiatric Progress Note ---
Date of Service July 18, 2022 Impression / Recommendations Impression 66 yo female with hx of refractory ruminative depression since COVID. Partial response to current meds, worsened in the setting of family illness and health fears. Diagnostically consistent with major depression with anxious distress and DELILAH with panic attacks. She is deemed unstable and requires psychiatric hospitalization for diagnostic clarification, safety and stabilization, medication management and development of further coping skills. MNPR due to age, fear of infection 07/18/22: Mood is improving with no panic attacks yesterday and tolerating physical symptoms of congestion today, denying SI. Tolerating medication adjustments. (1) Recurrent severe major depressive disorder with anxiety: Plan 07/18/22: Continue current medications and tx plan. 07/17/22: Switch dosing of ativan to 0800 and 2100 07/16/22: Increase abilify to 2.5mg po 0800 and 1500. 07/15/22: Continue current medications and tx plan. 07/14/22: will have PCP f/u for lipids and BP, BP improved now that less anxious. Cotninue Abilify trial, Ativan, and Remeron with additional prns. 07/13/22: Zoloft 25 mg tomorrow last dose. Risks/benefits/alternatives were reviewed re: antipsychotics for mood and/or psychosis. Discussion included but was not limited to metabolic side effects, risks of TD and suicidal thoughts. There were no abnormal motor movements at baseline. Fasting glucose and lipid panel ordered for baseline monitoring. She agreed to a trial of Abilify 2.5 mg daily for treatment refractory depression (adjunctive to mirtazapine). 07/12/22: taper Zoloft to 75 mg with plan to d/c. Remeron increased last pm. Patient did receive low dose Ativan (in consultation with pain med) last stay with some benefits and understands fall risk. Agreed to 0.5 mg now and 0.25 mg po BID for now. Consider Abilify augmentation. 07/11/22: The patient was [facility] unit) on q15 min checks (behavioral with suicide precautions) for safety. The patient will participate in group, recreational, and milieu therapies and will be offered additional individual and family sessions as clinically appropriate. Risks/benefits/alternatives reviewed re: current medications. Patient agrees to a trial of increase dose of Remeron. Inventory Assets Strengths: help seeking, animal lover Needs: improve coping, medical adjustment Suicide Risk Level Suicide Risk Level: Moderate (q15 min suicide checks) (depression and anxiety with SI but feels safe in the hospital and agrees to alert nursing if she feels unable to remain safe or develops SI with plan or intent ) Risk Factors Assessment : Yes Do You Have Access To A Gun?: No ( owns gun but is secured ) Health Problems: Yes Mental Health Diagnoses: Yes Substance Use Disorders: No Previous Attempt: No Previous Psychiatric Hospitalization: Yes Protective Factors Assessment : Yes Employed: No Stable Relationships: Yes Supportive Family: Yes Interval History Identifying Information RICKI MOSHER is a 66-year-old F who currently lives in [place], has a recent admission to on 06/05/22-06/11/22, and was admitted on 07/11/22 12:16 on a 201 voluntary commitment for depression with anxiety and poor functioning. Chief Complaint "I'm a little antsy today". Review of Systems Sleep Information Total Hours of Sleep: 6.5 Meal Information Percent Meal Consumed - Breakfast: 100 Percent Meal Consumed - Lunch: 100 Percent Meal Consumed - Dinner: 85 Subjective Subjective Patient was seen & assessed and interval progress reviewed with treatment team nursing and social work. Notes she felt shaky yesterday evening and received prn Vistaril with good effect. Slept well overnight. Anxious about how she will do outside of structure of the hospital but feels her depression and anxiety is improving. Lehigh a bit antsy as she woke with some nasal congestion but is coping with this and notes that previously these type of physical symptoms would set off uncontrolled anxiety and depression so she's encouraged that hasn't happened. Physical Exam Psychiatric Orientation: alert and oriented x 3 Apperance: appropriately dressed and appropriately groomed Eye Contact: good eye contact Motor Behavior: no abnormal motor movements Speech: normal rate/rhythm/volume of speech Affect: + anxious affect Mood: + depressed mood and + anxious mood Thought Process: + circumstantial thought process Thought Content: reality based without delusions Suicidal Thoughts: denies suicidal thoughts, denies suicidal plan and denies suicidal intent Homicidal Thoughts: denies homicidal thoughts Hallucinations: no auditory hallucinations and no visual hallucinations Cognition: attention grossly intact and language grossly intact Estimated Intelligence: consistent with education level Insight: + fair insight Judgement: + fair judgement Vital Signs (Past 24 Hours) Last Vital Signs Temp 36.4 C L 07/18/22 06:33 Pulse 83 07/18/22 06:33 Resp 16 07/18/22 06:33 BP 163/91 H 07/18/22 06:33 Pulse Ox 98 07/16/22 06:00 O2 Del Method 07/16/22 06:00 Results & Data ([facility]) Current Inpatient Medications Current Inpatient Medications: Current Inpatient Medications Acetaminophen (Acetaminophen 325 Mg Tab) 650 mg PO Q4H PRN PRN Reason: Headache or Minor Fever Stop: 08/10/22 12:15 Last Admin: 07/16/22 23:32 Dose: 650 mg Al Hydrox/Mg Hydrox/Simethicone (Aluminum/Magnesium Susp 30 Ml Udc) 30 ml PO Q4H PRN PRN Reason: GI Upset Stop: 08/10/22 12:15 Amlodipine Besylate (Amlodipine Besylate 5 Mg Tab) 10 mg PO QAM [facility] Stop: 08/11/22 08:59 Last Admin: 07/17/22 08:53 Dose: 10 mg Aripiprazole (Aripiprazole 5 Mg Tab) 2.5 mg PO BID@0800,1500 [facility] Stop: 08/15/22 14:59 Last Admin: 07/17/22 15:11 Dose: 2.5 mg Bismuth Subsalicylate (Bismuth Subsalicylate Liqd 236 Ml) 15 ml PO PRN PRN PRN Reason: Loose Stool Stop: 08/10/22 12:15 Buprenorphine/Naloxone (Buprenorphine/Naloxone 8/2 Mg Tab) 1 tab SL BID [facility] Stop: 08/09/22 22:44 Last Admin: 07/17/22 20:58 Dose: 1 tab Enalapril Maleate (Enalapril Maleate 5 Mg Tab) 5 mg PO QAM [facility] Stop: 08/11/22 08:59 Last Admin: 07/17/22 08:56 Dose: 5 mg Hydroxyzine HCl (Hydroxyzine Hcl 25 Mg Tab) 50 mg PO HSZ PRN PRN Reason: Insomnia Stop: 08/10/22 12:15 Last Admin: 07/13/22 22:32 Dose: 50 mg Hydroxyzine HCl (Hydroxyzine Hcl 25 Mg Tab) 25 mg PO Q4H PRN PRN Reason: Anxiety Stop: 08/10/22 12:15 Last Admin: 07/17/22 17:27 Dose: 25 mg Lorazepam (Lorazepam 0.5 Mg Tab) 0.5 mg PO BID@0900,1999 [facility] Stop: 08/16/22 19:59 Last Admin: 07/17/22 20:58 Dose: 0.5 mg Magnesium Hydroxide (Magnesium Hydroxide Susp 30 Ml Udc) 30 ml PO DAILY PRN PRN Reason: Constipation Stop: 08/10/22 12:15 Melatonin (Melatonin 3 Mg Tab) 9 mg PO [facility] Stop: 08/10/22 21:59 Last Admin: 07/17/22 20:59 Dose: 9 mg Menthol (Cough Drop (Sugar Free) Rodolfo 24 Rodolfo/1 Box) 1 rodolfo BUCCAL 5XDQ2H PRN PRN Reason: Sore Throat Stop: 08/13/22 14:34 Metformin HCl (Metformin Hcl 500 Mg Tab) 1,000 mg PO BIDM [facility] Stop: 08/10/22 13:29 Last Admin: 07/17/22 17:19 Dose: 1,000 mg Mirtazapine (Mirtazapine Tab 15 Mg Tab) 30 mg PO [facility] Stop: 08/10/22 21:59 Last Admin: 07/17/22 20:59 Dose: 30 mg Pantoprazole Sodium (Pantoprazole 40 Mg Tab) 40 mg PO QAM [facility] Stop: 08/11/22 08:59 Last Admin: 07/17/22 08:57 Dose: 40 mg Propranolol HCl (Propranolol Hcl 20 Mg Tab) 20 mg PO BID PRN PRN Reason: Anxiety Stop: 08/10/22 13:17 Last Admin: 07/12/22 14:39 Dose: 20 mg Sodium Chloride (Sodium Chloride 0.65% Na Soln 45 Ml ([place])) 1 - 2 sprays NA PRN PRN PRN Reason: Nasal Dryness/Congestion Stop: 08/10/22 12:15 Trolamine Salicylate (Trolamine Salicylate 10% Crm 255 Appln/85 Gm Tube) 1 appln EXT Q12 PRN PRN Reason: Pain Stop: 08/15/22 21:00 Last Admin: 07/16/22 21:13 Dose: 1 appln Mental Health & Subst Abuse Tx Psychiatrist Name of Psychiatrist: [facility] Date of Appointment with Psychiatrist: 07/25/22 Time of Appointment with Psychiatrist: 11:20am Psychiatric Appointment Comment: [address] [place], [place] Therapist Name of Therapist: [facility] Therapist's Date of Therapist Appointment: 07/20/22 Time of Therapist Appointment: 9 AM Therapy Appointment Comment: [phone] [place] Post Discharge Appointments Primary Care Phys[facility] Date of Appointment with PCP: 07/19/22 Time of Appointment with PCP: 9:05am arrival for 9:20am appointment Provider Appointment Comment: [phone] [place] Contact Information Discharge Discharge Address: [address] [place] [address] YANCY Campos [id number]
[2022-07-18] MEDS: ARIPiprazole 5 MG TAB PO SCH ×2 (09:34→14:27)
[2022-07-18] MEDS: amLODIPine BESYLATE 5 MG TAB PO SCH (09:35)
[2022-07-18] MEDS: ENALAPRIL MALEATE 5 MG TAB PO SCH (09:36)
[2022-07-18] MEDS: metFORMIN HCL 500 MG TAB PO SCH ×2 (09:36→17:38)
[2022-07-18] MEDS: BUPRENORPHINE/NALOXONE 8/2 MG TAB SL SCH ×2 (09:36→21:43)
[2022-07-18] MEDS: LORazepam 0.5 MG TAB PO SCH ×2 (09:36→20:29)
[2022-07-18] MEDS: PANTOprazole 40 MG TAB PO SCH (09:37)
[2022-07-18] MEDS: ACETAMINOPHEN 325 MG TAB PO PRN (20:29)
[2022-07-18] MEDS: TROLAMINE SALICYLATE 10% CRM 255 APPLN/85 GM TUBE EXT PRN (20:53)
[2022-07-18] MEDS: MIRTAZAPINE TAB 15 MG TAB PO SCH (21:42)
[2022-07-18] MEDS: MELATONIN 3 MG TAB PO SCH (21:43)
[2022-07-19] MEDS: ARIPiprazole 5 MG TAB PO SCH (09:34)
[2022-07-19] MEDS: amLODIPine BESYLATE 5 MG TAB PO SCH (09:35)
[2022-07-19] MEDS: BUPRENORPHINE/NALOXONE 8/2 MG TAB SL SCH (09:36)
[2022-07-19] MEDS: ENALAPRIL MALEATE 5 MG TAB PO SCH (09:36)
[2022-07-19] MEDS: LORazepam 0.5 MG TAB PO SCH (09:37)
[2022-07-19] MEDS: PANTOprazole 40 MG TAB PO SCH (09:37)
[2022-07-19] MEDS: metFORMIN HCL 500 MG TAB PO SCH (09:37)
--- NOTE | 2022-07-19 10:14 | Discharge Summary ---
Date of Service July 19, 2022 History of Present Illness Per last admission: Gallo presents for psychiatric admission for severe anxiety and depression since having COVID in May and now with non-stop panic attacks and passive SI which is preventing her from attending to her ADLs and has res ulted in almost 25lbs of weight loss within the last month due to no appetite. She's not sleeping well, has low appetite, feels very hopeless and feels unable to do anything she used to enjoy or needs to do. She notes that a few days after getting COVID she felt like she was suffocating and "like there is this pressure in my head" and hasn't been able to find relief since then. She notes "the only time I get relief is when I'm sleeping" due to sleep onset insomnia. She notes "everything sets me off, noises, smells, I just want left alone". Today the patient reports feeling very similarly for the past 4-5 days. This coincides with multiple family members having RSV, quarateened self to basement and she became concerned about getting sick and having a relapse. Her symptoms were already "coming back" as she agreed to an increase in her Zoloft last week. She feels particularly overwhelmed in the am. She sometimes feels "a little hyper" but there is no evidence of activation. She doesn't feel like she has been able to care for her animals as well. Physical Exam Vital Signs (Past 24 Hours) Last Vital Signs Temp 36.6 C 07/19/22 06:37 Pulse 82 07/19/22 06:38 Resp 16 07/19/22 06:37 BP 154/83 H 07/19/22 06:38 Pulse Ox 98 07/16/22 06:00 O2 Del Method 07/16/22 06:00 See admission H&P and DOD summary. Principal Diagnosis Major Depressive Disorder with anxious distress Psychiatric Data See daily stay summary. In short, patient was engaged with the social/therapeutic milieu of the unit, safety was maintained and the patient was cooperative with care. Gallo's depressive and anxious symptoms seemed to amplify after an infection with RSV which triggered memories and fears of decompensation such as occurred following prior COVID infection. Given the degree of depressive symptoms with severe ruminative anxiety and poor response to SSRI, sertraline was tapered to discontinuation, mirtazapine was increased to 30mg qhs and Abilify was added for depression augmentation with good effect. She was put on scheduled ativan for panic attacks with goal of tapering this over time ideally to as needed use a few times per month once the higher dose of mirtazapine takes full effect. Baseline labs of fasting glucose, fasting lipid profile, and weight were preformed and notable for elevated BMI, elevated fasting glucose (112 mg/dl), and elevated triglycerides (333 mg/dl). Recommend repeat weight in one month. Recommend repeat fasting glucose, HbA1c and fasting lipid profile every 12 weeks and then annually. If symptoms arise recommend checking BP, EKG, prolactin level as clinically indicated or relevant. A family session was held and safety plan was completed prior to discharge. She actively and insightfully participated in safety planning and in discussions about ways to seek support and recognizing warning signs and utilizing coping skills. On the day of discharge she stated her mood was "really good" noting that "my mornings have improved significant and I'm really happy with the way things have come around for me and that we have the right medications on board" and remained future-oriented including spending time with her family, celebrating Colleen, and engaging in aftercare appointments for psychiatry, therapy, pain management and with her primary care provider. Day of Discharge Assessment Today the patient voices readiness for discharge. They note improvement in mood and anxiety. They deny thoughts of harm to self or others. Thoughts are organized and they are clinically improved from admission. There is no evidence of psychosis. They improved in the hospital with support and medication adjustments. They agree to take medications as prescribed and keep follow-up appointments. At the time of the discharge they are deemed to be stable and appropriate for outpatient level of care. They are not deemed to be at imminent risk of harm to self or others. They are aware of emergency and crisis services. Knows to call 911 or go to nearest emergency care center if in a crisis which cannot be handled as an outpatient. Transition of Care Transition Of Care Record: was reviewed with the patient Advance Directives Advance Directives Information Provided: Yes Advance Directives: No Mental Health Advance Directive: No Advance Directives on File: No Living Will: No Power of Nursing Clerk: No Advance Directives Reason:: Declines as Mental Health Visit. Suicide Risk Level Suicide Risk Level Comments: Acute risk is low given improvement in mood and denial of SI, lack of access to lethal means, improvement in sleep, hopefulness, improvement in anxiety. Chronic risk is low to moderate given some non-modifiable risk factors including psychiatric co-morbid diagnoses, chronic pain but also with many protective factors including supportive and family, no prior attempts, good rapport with her outpatient providers and seeks treatment and help when distressed. Counseled on ways to reduce acute and chronic risk including engaging with outpatient providers, using safety plan if needed, utilizing supports, taking medication, and using coping skills. Modifiable risk factors of anxiety, panic attacks, SI and depression were addressed during hospitalization through development of new coping skills, family meeting, safety planning, and medicat ion adjustments. Risk Factors Assessment : Yes Do You Have Access To A Gun?: No ( owns gun but is secured ) Health Problems: Yes Mental Health Diagnoses: Yes Substance Use Disorders: No Previous Attempt: No Family History of Suicide: No Previous Psychiatric Hospitalization: Yes Hopelessness: No Protective Factors Assessment : Yes Employed: No Stable Relationships: Yes Supportive Family: Yes Good Rapport with Provider: Yes Discharge Data Lab Results 07/10/22 07/10/22 07/10/22 17:49 17:56 17:56 WBC 6.33 RBC 4.67 Hgb 12.9 Hct 39.8 MCV 85.2 MCH 27.6 MCHC 32.4 RDW Std Deviation 41.0 RDW Coeff of Simona 13.2 Plt Count 195 MPV 10.2 Immature Gran % (Auto) 0.2 Neut % (Auto) 56.8 Lymph % (Auto) 33.6 Brule % (Auto) 7.0 Eos % (Auto) 1.9 Baso % (Auto) 0.5 Neut # (Auto) 3.60 Lymph # (Auto) 2.13 Brule # (Auto) 0.44 Eos # (Auto) 0.12 Baso # (Auto) 0.03 Immature Gran # (Auto) 0.01 Sodium 143 Potassium 3.6 Chloride 105 Carbon Dioxide 29 Anion Gap 9 BUN 13 Creatinine 1.01 Est Cr Clr Drug Dosing 59.4 Est GFR ( Amer) 68.1 Est GFR (Non-Af Amer) 58.8 BUN/Creatinine Ratio 12.9 Glucose 110 H Fasting Glucose Calcium 9.9 Total Bilirubin 0.8 AST 76 H ALT 92 H Alkaline Phosphatase 60 Total Protein 7.6 Albumin 4.8 Globulin 2.8 Albumin/Globulin Ratio 1.7 Triglycerides Cholesterol LDL Cholesterol, Calc VLDL Cholesterol, Calc HDL Cholesterol Cholesterol/HDL Ratio TSH Urine Color Urine Appearance Urine pH Ur Specific [place] Urine Protein Urine Glucose (UA) Urine Ketones Urine Blood Urine Nitrite Urine Bilirubin Urine Urobilinogen Ur Leukocyte Esterase Salicylates Urine Opiates Screen Ur Methadone, Qual Acetaminophen Urine Barbiturates Ur Phencyclidine (PCP) U Amphetamin/Meth Scrn MDMA (Ecstasy) Screen U Benzodiazepines Scrn Ur Cocaine Metabolite U Marijuana (THC) Screen Ethyl Alcohol mg/dL SARS-CoV-2, RNA, NAAT NEGATIVE 07/10/22 07/10/22 07/10/22 17:56 17:56 17:56 WBC RBC Hgb Hct MCV MCH MCHC RDW Std Deviation RDW Coeff of Simona Plt Count MPV Immature Gran % (Auto) Neut % (Auto) Lymph % (Auto) Brule % (Auto) Eos % (Auto) Baso % (Auto) Neut # (Auto) Lymph # (Auto) Brule # (Auto) Eos # (Auto) Baso # (Auto) Immature Gran # (Auto) Sodium Potassium Chloride Carbon Dioxide Anion Gap BUN Creatinine Est Cr Clr Drug Dosing Est GFR ( Amer) Est GFR (Non-Af Amer) BUN/Creatinine Ratio Glucose Fasting Glucose Calcium Total Bilirubin AST ALT Alkaline Phosphatase Total Protein Albumin Globulin Albumin/Globulin Ratio Triglycerides Cholesterol LDL Cholesterol, Calc VLDL Cholesterol, Calc HDL Cholesterol Cholesterol/HDL Ratio TSH 0.974 Urine Color Urine Appearance Urine pH Ur Specific [place] Urine Protein Urine Glucose (UA) Urine Ketones Urine Blood Urine Nitrite Urine Bilirubin Urine Urobilinogen Ur Leukocyte Esterase Salicylates < 3.0 L Urine Opiates Screen Ur Methadone, Qual Acetaminophen < 3 L Urine Barbiturates Ur Phencyclidine (PCP) U Amphetamin/Meth Scrn MDMA (Ecstasy) Screen U Benzodiazepines Scrn Ur Cocaine Metabolite U Marijuana (THC) Screen Ethyl Alcohol mg/dL < 10.0 SARS-CoV-2, RNA, NAAT 07/10/22 07/10/22 07/14/22 18:00 18:00 07:40 WBC RBC Hgb Hct MCV MCH MCHC RDW Std Deviation RDW Coeff of Simona Plt Count MPV Immature Gran % (Auto) Neut % (Auto) Lymph % (Auto) Brule % (Auto) Eos % (Auto) Baso % (Auto) Neut # (Auto) Lymph # (Auto) Brule # (Auto) Eos # (Auto) Baso # (Auto) Immature Gran # (Auto) Sodium Potassium Chloride Carbon Dioxide Anion Gap BUN Creatinine Est Cr Clr Drug Dosing Est GFR ( Amer) Est GFR (Non-Af Amer) BUN/Creatinine Ratio Glucose Fasting Glucose 112 H Calcium Total Bilirubin AST ALT Alkaline Phosphatase Total Protein Albumin Globulin Albumin/Globulin Ratio Triglycerides 333 H Cholesterol 158 LDL Cholesterol, Calc 53 VLDL Cholesterol, Calc 67 H HDL Cholesterol 38 Cholesterol/HDL Ratio 4.2 TSH Urine Color Yellow Urine Appearance Clear Urine pH 5.5 Ur Specific [place] 1.013 Urine Protein Negative Urine Glucose (UA) Negative Urine Ketones 1+ H Urine Blood Negative Urine Nitrite Negative Urine Bilirubin Negative Urine Urobilinogen Negative Ur Leukocyte Esterase Negative Salicylates Urine Opiates Screen Neg Ur Methadone, Qual Neg Acetaminophen Urine Barbiturates Neg Ur Phencyclidine (PCP) Neg U Amphetamin/Meth Scrn Neg MDMA (Ecstasy) Screen Neg U Benzodiazepines Scrn Neg Ur Cocaine Metabolite Neg U Marijuana (THC) Screen Neg Ethyl Alcohol mg/dL SARS-CoV-2, RNA, NAAT Hospital Course (1) Recurrent severe major depressive disorder with anxiety: (2) Generalized anxiety disorder with panic attacks: Plan 07/18/22: Continue current medications and tx plan. 07/17/22: Switch dosing of ativan to 0800 and 2100 07/16/22: Increase abilify to 2.5mg po 0800 and 1500. 07/15/22: Continue current medications and tx plan. 07/14/22: will have PCP f/u for lipids and BP, BP improved now that less anxious. Cotninue Abilify trial, Ativan, and Remeron with additional prns. 07/13/22: Zoloft 25 mg tomorrow last dose. Risks/benefits/alternatives were reviewed re: antipsychotics for mood and/or psychosis. Discussion included but was not limited to metabolic side effects, risks of TD and suicidal thoughts. There were no abnormal motor movements at baseline. Fasting glucose and lipid panel ordered for baseline monitoring. She agreed to a trial of Abilify 2.5 mg daily for treatment refractory depression (adjunctive to mirtazapine). 07/12/22: taper Zoloft to 75 mg with plan to d/c. Remeron increased last pm. Patient did receive low dose Ativan (in consultation with pain med) last stay with some benefits and understands fall risk. Agreed to 0.5 mg now and 0.25 mg po BID for now. Consider Abilify augmentation. 07/11/22: The patient was admitted to the [facility] ([facility] mental health unit) on q15 min checks (behavioral with suicide precautions) for safety. The patient will participate in group, recreational, and milieu therapies and will be offered additional individual and family sessions as clinically appropriate. Risks/benefits/alternatives reviewed re: current medications. Patient agrees to a trial of increase dose of Remeron. Mental Health & Subst Abuse Tx Psychiatrist Name of Psychiatrist: [facility] Date of Appointment with Psychiatrist: 07/25/22 Time of Appointment with Psychiatrist: 11:20am Psychiatric Appointment Comment: [address] [place], [place] Psychiatrist Release of Information: Obtained, Reviewed and Signed Therapist Name of Therapist: [facility] Therapist's Date of Therapist Appointment: 07/20/22 Time of Therapist Appointment: 9 AM Therapy Appointment Comment: [phone] [place] Therapist Release of Information: Obtained, Reviewed and Signed Post Discharge Appointments Primary Care Physician [facility] Date of Appointment with PCP: 07/24/22 Time of Appointment with PCP: 9:25am arrival for 9:40am appointment Provider Appointment Comment: [phone]gee [place] Primary Care Release of Information: Obtained, Reviewed and Signed Contact Information Discharge Discharge Address: [address] [place] [id number] Discharge Plan Discharge Items Patient Disposition: Home - Self-Care Reason For Visit: MDD Discharge Diagnosis: Major depressive disorder with anxious distress Activity: Resume your previous activity Non-emergency contact: Primary Care Provider, Psychiatrist and Therapist Call non-emergency contact if: you have any medication questions and your symptoms worsen Follow-up/Referrals: Pavan Garcia MD [Primary Care Provider] - Diet: Regular Addtl Attending Provider Instructions: SPECIAL CARE INSTRUCTIONS: 1. Follow through with your scheduled aftercare appointments. If unable to keep an appointment, please call to reschedule. 2. Take your medication only as prescribed. Medication should not be changed or stopped without the approval of your doctor. In the event of worsening symptoms or concerns about side effects, contact your doctor immediately. 3. Utilize new healthy coping skills, anger management skills, and stress management skills learned during your hospitalization. Journal feelings and process them with a support person. Identify stressors or situations that may result in relapse, deterioration or inappropriate behaviors and develop a plan to deal with those issues. 4. If your coping skills are ineffective and you are in crisis, contact your outpatient providers for direction. If unable to reach your providers, please call the [facility] CRISIS LINE AT , go to the [facility] walk-in center at [address], [address], [place], or go to the closest Emergency Room. 5. Avoid alcohol and un-prescribed drugs. 6. You have been provided with the Mental Health Advance Directives Pamphlet for your review. 7. Your condition is stable for discharge to outpatient level of care, but recovery is an ongoing process. Ifthoughts to harm yourself or others return, follow the safety plan developed during your stay. Planning for a safe return home includes securing weapons. Our treatment team recommends weaponsbe removed from the home until your outpatient provider reassesses your progress. In rare cases where the items themselvescannot be removed, guns and ammunitionshould be secured separatelyand keys stored by a reliable personoutside of the home. If you were admitted on an involuntary commitment, the police or other legal authorities may be involved in this process. AFTERCARE APPOINTMENTS: * Please call your insurance company prior to your scheduled appointment to confirm your aftercare providers are covered. Take your insurance information to your appointments. WHO TO CALL AND WHEN: Medical Emergencies: For questions or emergencies related to your hospital stay, please contact the Inpatient Behavioral Health Unit at [phone]. A office clinician is on-call 26/02 for the Behavioral Health Unit for emergencies At any time you feel your situation is an emergency, you may also call 911 immediately. Pending Studies at Discharge: No Stand-Alone Forms: My [facility] Medications and DC Order Prescriptions: New mirtazapine 30 mg tablet 30 mg PO HS 30 Days Qty: 30 0RF aripiprazole [Abilify] 5 mg Tablet 2.5 mg PO BID@0800,1500 30 Days Qty: 30 0RF lorazepam 0.5 mg Tablet 0.5 mg PO BID@0900,1999 30 Days Qty: 60 0RF Continued amlodipine 10 mg Tablet 10 mg PO QAM Qty: 0 omeprazole 20 mg Tablet,Delayed Release (Dr/Ec) 20 mg PO DAILY Qty: 0 enalapril maleate 5 mg Tablet 5 mg PO QPM buprenorphine-naloxone 8-2 mg film 1 film sublingual BID hydroxyzine HCl 50 mg tablet 50 mg PO Q6HWA PRN (Reason: anxiety) Qty: 30 0RF metformin 1,000 mg Tablet 1,000 mg PO BIDWMEAL Qty: 1 0RF propranolol 20 mg tablet 20 mg PO BID PRN (Reason: Anxiety) melatonin 10 mg Tablet 10 mg PO HS Discontinued mirtazapine 15 mg Tablet 15 mg PO HS Qty: 30 0RF sertraline 50 mg tablet 50 mg PO QAM sertraline 100 mg tablet 100 mg PO QAM buprenorphine-naloxone 8-2 mg film 1 film sublingual BID PRN (Reason: Pain) Discharge Orders: Discharge Order (Routine); Ordered 07/19/22 Ordered By: Ivis Palmer Admission Data Admit Date/Time: 07/11/22 12:16 Attending Provider: Sue Deluna Admit Provider: Sue Deluna Primary Care Provider: Pavan Garcia Other Interventions: Discharge Summary Assessment (RN) Last Done: 07/19/22 10:26 Coding Level of Care Code 00065 D/C day mgmt > 30 min Diagnoses Recurrent severe major depressive disorder with anxiety F33.2; F41.9 Generalized anxiety disorder with panic attacks F41.1; F41.0 Time Spent (min) 45
== END 2022-07-19 13:23 | disposition home or self-care (01) | DRG 885 ==
LOC: ED 15:30 → 3S 07-11 12:16